=== PATIENT | female | born 1965 | race Caucasian/White ===

== ENCOUNTER 2021-01-24 08:06 | Outpatient (REF) | payer OTHER, SELFPAY ==
--- NOTE | ~2021-01-24 | MM_ITS ---
EXAMINATION: MM SCREENING DIGITAL BREAST TOMOSYNTHESIS, BILATERAL CLINICAL INFORMATION: Screening. Asymptomatic. The lifetime risk of breast cancer based on the Tyrer-Cuzick Model is 11.2%. COMPARISON: Mammography: November 26, 2019 and studies dating back to February 02, 2014 TECHNIQUE: Digital breast tomosynthesis is performed in both the craniocaudal and mediolateral oblique views along with computer-aided detection (CAD). Synthesized 2D images are generated from the tomosynthesis. FINDINGS: The breasts are heterogeneously dense, which may obscure small masses (ACR BI-RADS breast composition Category c). There are no significant masses, abnormal calcifications, or other abnormalities. MM/MM tomosynthesis screening BI IMPRESSION: There are no significant changes from prior study. ASSESSMENT: BI-RADS 1: Negative RECOMMENDATION: Routine annual mammography screening. This patient's information was entered into a reminder system with a target due date for their next mammogram.
== END 2021-01-24 08:07 | disposition home or self-care (01) ==
LOC: HO.MAMMO 08:06
PROVIDERS: Visit Provider Pediatrics
DX: Z12.31 Encounter for screening mammogram for malignant neoplasm of breast (principal)
CPT/HCPCS: 77063; 77067

== ENCOUNTER 2022-01-28 08:13 | Outpatient (REF) | payer OTHER, SELFPAY ==
--- NOTE | ~2022-01-28 | MM_ITS ---
EXAMINATION: MM SCREENING DIGITAL BREAST TOMOSYNTHESIS, BILATERAL CLINICAL INFORMATION: Screening. Asymptomatic. The lifetime risk of breast cancer based on the Tyrer-Cuzick Model is 12%. COMPARISON: Mammography: 01/24/2021, 11/26/2019, 10/05/2018 TECHNIQUE: Digital breast tomosynthesis is performed in both the craniocaudal and mediolateral oblique views along with computer-aided detection (CAD). Synthesized 2D images are generated from the tomosynthesis. FINDINGS: The breasts are heterogeneously dense, which may obscure small masses (ACR BI-RADS breast composition Category c). Breast tissue composition borders on average fibroglandular. There are no significant masses, abnormal calcifications, or other abnormalities. Parenchymal pattern is similar to prior studies. There is no developing density or architectural abnormality. The axilla and skin contours are unremarkable. No significant changes. MM/MM tomosynthesis screening BI IMPRESSION: No mammographic evidence of malignancy. ASSESSMENT: BI-RADS 1: Negative RECOMMENDATION: Routine annual mammography screening. This patient's information was entered into a reminder system with a target due date for their next mammogram.
== END 2022-01-28 08:14 | disposition home or self-care (01) ==
LOC: HO.MAMMO 08:13
PROVIDERS: Visit Provider Pediatrics
DX: Z12.31 Encounter for screening mammogram for malignant neoplasm of breast (principal)
CPT/HCPCS: 77063; 77067

== ENCOUNTER 2023-02-03 07:45 | Outpatient (REF) | payer OTHER, SELFPAY ==
--- NOTE | ~2023-02-03 | MM_ITS ---
EXAMINATION: MM SCREENING DIGITAL BREAST TOMOSYNTHESIS, BILATERAL CLINICAL INFORMATION: Screening. Asymptomatic. The lifetime risk of breast cancer based on the Tyrer-Cuzick Model is 12%. COMPARISON: Mammography: 01/28/2022, 01/24/2021, 11/26/2019 TECHNIQUE: Digital breast tomosynthesis is performed in both the craniocaudal and mediolateral oblique views along with computer-aided detection (CAD). Synthesized 2D images are generated from the tomosynthesis. FINDINGS: The breasts are heterogeneously dense, which may obscure small masses (ACR BI-RADS breast composition Category c). Breast tissue composition borders on average fibroglandular. Fine fibronodular parenchymal pattern is similar to prior studies and there is no developing density or architectural abnormality. There are no significant masses, abnormal calcifications, or other abnormalities. The axilla and skin contours are unremarkable. MM/MM tomosynthesis screening BI IMPRESSION: No mammographic evidence of malignancy. ASSESSMENT: BI-RADS 1: Negative RECOMMENDATION: Routine annual mammography screening. This patient's information was entered into a reminder system with a target due date for their next mammogram.
== END 2023-02-03 07:46 | disposition home or self-care (01) ==
LOC: HO.MAMMO 07:45
PROVIDERS: Visit Provider Obstetrics & Gynecology
DX: Z12.31 Encounter for screening mammogram for malignant neoplasm of breast (principal)
CPT/HCPCS: 77063; 77067

== ENCOUNTER 2024-01-30 09:58 | Outpatient (AMB) | payer OTHER, SELFPAY ==
--- NOTE | 2024-01-30 10:05 | A.OFFPC_ITS ---
Vital Signs 01/30/24 10:06 Height 5 ft 5 in Weight 181 lb 8 oz BMI 30.2 BP 131/73 Blood Pressure Location Rt brachial Position Sitting Pulse 70 Pulse Source Pulse Oximeter Pulse Oximetry (%) 97 Oxygen Delivery Method Room Air Intake Visit Reasons: Est care Intake Note: Pt presents to the office today for a new patient visit to establish care. Pt states she is feeling well and denies any concerns at this time. Allergies No Known Allergies [No Known Allergies*] Allergy (Unverified 01/30/24 10:08) Tobacco use date assessed: 01/30/24 Dental Screening Dental Screen Date: 01/30/24 Did you have a dental visit in the last 12 months?: Yes Did you have a dental problem in the last 6 months where you did not have access to dental care?: No Was dental information given to patient?: Patient has dentist HPI Est care HPI Details New patient Prior PCP:? Rianna Rico Last office visit/CPE: 1 yr ago Acute issue(s): Throat pain - improving PMHx: Rosacea, Psoriasis ([facility]). Cold sores. h/o anxiety. SurgHx: Tonsils/Adenoids. Bladder sling. . FHx: Dad: Melanoma, HTN, Prostate CA. Mom: HLD, Thyroid. daughter: ADHD. GF: Colon CA SocHx: Quit cigs 22 yrs ago. EtOH: 1-2 dr 1x a week. 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 1. Little interest or pleasure in doing things: not at all 2. Feeling down, depressed, or hopeless: not at all 3. Trouble falling or staying asleep, or sleeping too much: not at all 4. Feeling tired or having little energy: not at all 5. Poor appetite or overeating: not at all 6. Feeling bad about yourself - or that you are a failure or have let yourself or your family down: not at all 7. Trouble concentrating on things, such as reading the newspaper or watching television: not at all 8. Moving or speaking so slowly that other people could have noticed. Or the opposite - being so fidgety or restless that you have been moving around a lot more than usual: not at all 9. Thoughts that you would be better off or of hurting yourself in some way: not at all Total score: 0 Depression Screening Interpretation: Negative Depression Screening Done: Yes [id number] - PHQ-9 Billing: Yes Source: Developed by Drs. Zion Elizondo, Iqra Rene, Jason Nava and colleagues, with an educational zahraa from [employer]. Thrive Questionnaire Date Thrive assessed: 01/30/24 I am a: Patient What is your living situation today?: I have a steady place to live Within the past 12 months, did the food you bought not last and you didn't have the money to get more?: Never true Within the past 12 months, did you worry whether your food would run out before you got money to buy more?: Never true Do you have trouble paying for medicines?: No Do you have trouble getting transportation to medical appointments?: No Do you have trouble paying your heating and electricity bill?: No Do you have trouble taking care of your child, family member or friend?: No Do you have trouble with day-to-day activities such as bathing, preparing meals, shopping, managing finances, etc.?: No Are you currently unemployed and looking for a job?: No Are you interested in more education?: No THRIVE Score: 0 AUDIT C Alcohol Use Questionnaire (AUDIT-C) 1. How often do you have a drink containing alcohol?: 2-4 times a month 2. How many drinks containing alcohol do you have on a typical day when you are drinking?: 1 or 2 3. How often do you have six or more drinks on one occasion?: Never Total Score: 2 EDD-7 AMB Questionnaire EDD-7 Date EDD - 7 assessed: 01/30/24 Feeling nervous, anxious, or on edge: 0 = Not at all Not being able to stop or control worryin = Not at all Worrying too much about different things: 1 = Several days Trouble relaxin = Not at all Being so restless that it is hard to sit still: 0 = Not at all Becoming easily annoyed or irritable: 0 = Not at all Feeling afraid as if something awful might happen: 0 = Not at all Total EDD-7 score (0-4 normal; 5-9 mild; 10-14 moderate; 15-21 severe): 1 Source: Developed by Drs. Zion Elizondo, Iqra Rene, Jason Nava and colleagues, with an educational zahraa from [employer]. EDD-7 Assessment Billing EDD-7 Assessment Tool: EDD-7 Assessment 41156 Review of Systems Const Denies chills, Denies fatigue, Denies fever(s), Denies headache(s) and Denies weakness ENT Denies dizziness and Denies headache(s) Card Denies chest pain, Denies lightheadedness, Denies dyspnea and Denies other (Palpitations) Resp Denies cough, Denies dyspnea, Denies wheezing and Denies other ( shortness of breath) Musc Denies numbness and Denies tingling Neuro Denies dizziness, Denies headache(s), Denies numbness, Denies tingling, Denies paresthesias and Denies weakness Psych Denies anxiety and Denies depression Endo Denies fatigue Aller/Immun Denies wheezing Physical exam (Primary Care) Vital Signs: Last Vital Signs Pulse 70 01/30/24 10:06 BP 131/73 01/30/24 10:06 Pulse Ox 97 01/30/24 10:06 Oxygen Delivery Method Room Air 01/30/24 10:06 BMI result Body Mass Index 30.2 Tobacco/Smoking Status: Tobacco use Status Tobacco use date assessed 01/30/24 01/30/24 10:14 Patient Tobacco Use Status Never used Tobacco 01/30/24 10:35 PHQ-9: PHQ-9 Score PHQ-9: Total score 0 01/30/24 10:45 Depression Screening Interpretation: Negative Thrive Assessment: Date of Thrive Assessment Date Thrive assessed 01/30/24 01/30/24 10:14 Const General: no acute distress and well developed Nutritional Appearance: well nourished and obese Orientation/consciousness: patient oriented x3 HENMT Other: Mild throat erythema Head: Yes normocephalic and Yes atraumatic Eyes General: appearance normal, both eyes and all related structures Pupils: Equal, round and reactive pupils present EOM: EOMs intact bilaterally Resp Effort & Inspection: normal respiratory effort Auscultation: clear to auscultation bilaterally Cardio Rate: regular rate Rhythm: regular rhythm Heart sounds: S1 normal heart sound present, S2 normal heart sound present, no gallops, no murmurs and no rubs Neuro General: patient oriented x3 and gait normal Cranial nerves: Yes Equal, round and reactive pupils present Psych Affect: normal affect Assessment and Plan Assessment & Plan (1) Throat pain: Code(s): R07.0 - Pain in throat Plan: Mild?throat?erythema?without?patchy?exudates?or?vesicles.??No?lymphadenopathy. Appears?to?be?irritation.??Encouraged?good?hydration,?humidified?air?and?warm?sa ltwater?gargles. (2) Rosacea: Code(s): L71.9 - Rosacea, unspecified Plan: Continue?current?medications Follow-up?with?Dermatology?as?recommended (3) Psoriasis: Code(s): L40.9 - Psoriasis, unspecified Plan: Continue?medication Follow-up?with?dermatology?as?recommended (4) Anxiety: Code(s): F41.9 - Anxiety disorder, unspecified Plan: History?of?anxiety.??This?has?resolved (5) Obesity: Code(s): E66.9 - Obesity, unspecified Plan: Mild?obesity.??Patient?is?frustrated?with?dieting?and?exercise.??She?is?consider ing?trying?intermittent?fasting. Discussed?exercise?and?diet. Will?follow (6) Laboratory exam ordered as part of routine general medical examination: Code(s): Z00.00 - Encounter for general adult medical examination without abnormal findings Plan: Check?labs Orders: Orders Comprehensive [place]. Panel Fast Today Z00.00 - Encounter for general adult medical examination without abnormal findings Lipid Panel Today Z00.00 - Encounter for general adult medical examination without abnormal findings Microalbumin, Random (w Creat) Today I10 - Essential (primary) hypertension TSH reflex Free T4 Today Z00.00 - Encounter for general adult medical examination without abnormal findings UA and rflx microscopic Today Z00.00 - Encounter for general adult medical examination without abnormal findings Coding Level of Care Code New Pt Level 3 (83684) Diagnoses Throat pain R07.0 Rosacea L71.9 Psoriasis L40.9 Anxiety F41.9 Obesity E66.9 Laboratory exam ordered as part of routine general medical examination Z00.00 Additional Codes EDD-7 Assessment Billing - EDD-7 Assessment Tool: EDD-7 Assessment [id number] ([id number])
[2024-01-30 10:06] VITALS: BP 131/73; PULSE 70; O2SAT 97; BMI 30.2
== END 2024-01-30 10:53 | disposition home or self-care (01) ==
PROVIDERS: PCP Pediatrics; Visit Provider Family Medicine
DX: R07.0 Pain in throat (principal); L71.9 Rosacea, unspecified; E66.9 Obesity, unspecified; Z68.30 Body mass index [BMI] 30.0-30.9, adult; L40.9 Psoriasis, unspecified; F41.9 Anxiety disorder, unspecified
CPT/HCPCS: 99203

== ENCOUNTER 2024-02-04 07:09 | Outpatient (REF) | payer OTHER, SELFPAY ==
[2024-02-04 11:43] LABS: Appearance Urine Cloudy; Color Urine Yellow; Glucose Urine UA Negative (Negative); Leukocyte Esterase Urine Moderate (2+) (Negative); Nitrite Urine Negative (Negative); PH 5.5 (5.0-9.0); UMIC TRIGGER UA YES; Urine Blood Negative (Negative); Urine Ketones Negative (Negative); Urine Protein Negative (Neg-Trace)
[2024-02-04 11:46] LABS: Bacteria Urine 4+ (None Seen); Hyaline Casts Urine 0-2 /LPF (0-2); RBC Urine 0-2 /HPF (0-2); WBC Urine 21-50 /HPF (0-5)
[2024-02-04 12:35] LABS: Creatinine Urine 180.81 mg/dL; Microalbum/Creatinine Ratio Ur 4.9 ug/mg cr (<30)
[2024-02-04 12:54] LABS: Alanine Aminotransferase 22 U/L (0-31); Albumin Level 4.3 g/dL (3.5-5.0); Alkaline Phosphatase 96 U/L (39-117); Anion Gap 13 (12-20); Aspartate Amino Transferase 17 U/L (5-31); Bilirubin Total 0.4 mg/dL (0.0-1.0); Blood Urea Nitrogen 18 mg/dL (9-16); Calcium 9.4 mg/dL (8.4-10.2); Carbon Dioxide 23 mmol/L (22-29); Chloride 110 mmol/L (96-108); Cholesterol 183 mg/dL (<200); Estimated Glomerular Filt Rate > 60; Glucose Fasting 84 mg/dL (60-99); HDL Cholesterol 55 mg/dL (>40); LDL Cholesterol Calculated 101 mg/dL (<100); Sodium 142 mmol/L (135-145); Total Protein 7.3 g/dL (6.5-8.0); Triglycerides 138 mg/dL (<150)
[2024-02-04 12:57] LABS: TSH reflex Free T4 4.26 uIU/mL (0.32-4.0)
[2024-02-04 13:28] LABS: Free T4 (Free Thyroxine) 1.08 ng/dL (0.71-1.85)
== END 2024-02-04 07:10 | disposition home or self-care (01) ==
LOC: HO.WFDLDS 07:09
PROVIDERS: Visit Provider Family Medicine
DX: Z00.00 Encounter for general adult medical examination without abnormal findings (principal); I10 Essential (primary) hypertension
CPT/HCPCS: 36415; 80053; 80061; 81001; 82043; 82570; 84439; 84443

== ENCOUNTER 2024-02-12 08:24 | Outpatient (REF) | payer OTHER, SELFPAY | END 2024-02-12 08:25 | disposition home or self-care (01) | LOC: HO.MAMMO 08:24 | PROVIDERS: PCP Family Medicine; Visit Provider Obstetrics & Gynecology | DX: Z12.31 Encounter for screening mammogram for malignant neoplasm of breast (principal) | CPT/HCPCS: 77063; 77067 ==

== ENCOUNTER → 2024-02-12 08:30 | Outpatient (BNV) | payer OTHER, SELFPAY | PROVIDERS: PCP Family Medicine; Visit Provider Radiology Diagnostic Radiology | DX: Z12.31 Encounter for screening mammogram for malignant neoplasm of breast (principal) | CPT/HCPCS: 77063; 77067 ==

== ENCOUNTER 2024-06-07 09:15 | Outpatient (AMB) | payer OTHER, SELFPAY ==
--- NOTE | 2024-06-07 09:32 | A.OFFPC_ITS ---
Vital Signs 06/07/24 09:35 Height 5 ft 5 in Weight 179 lb 4 oz BMI 29.8 BP 112/58 L Blood Pressure Location Rt brachial Respiration 12 Pulse 63 Pulse Source Pulse Oximeter Pulse Oximetry (%) 97 Oxygen Delivery Method Room Air Intake Visit Reasons: CPE with f/u labs and health maintenance Intake Note: Physical and lab results Loss Prevention Consultant Required: No Allergies No Known Allergies [No Known Allergies*] Allergy (Verified 06/07/24 09:48) Medication List - Last Reconciled 06/07/24 by Elizabeth Ibarra [facility]- azelaic acid 15% (Finacea) 1 appl topical BID 30 days betamethasone dipropionate 0.05% appl topical valacyclovir 500 mg PO BID 14 days Tobacco use date assessed: 06/07/24 Dental Screening Dental Screen Date: 01/30/24 HPI HPI Comments History of Present Illness Details 58 y/o F with Rosacea, Psoriasis, Cold sores, anxiety, former smoke, obesity, menopause, varicose veins SurgHx: Tonsils/Adenoids, Bladder sling. FHx: Dad: Melanoma, HTN, Prostate CA. Mom: HLD, Thyroid. daughter: ADHD. GF: Colon CA SocHx: Quit cigs 22 yrs ago. EtOH: 1-2 dr 1x a week. No drugs Specialists: Derm - [facility] - wears glasses/contacts, UTD on eye exam Health Maintenance: Colon overdue, active w/ Dr Yi she will schedule Mammo 02/12/2024 Pap reports UTD on screening DEXA has never had one done, ordered today Here today for CPE Overmalissa feels well. Only complaint is that of inability to lose weight. Admits that she needs to become more active as she is quite sedentary. The following labs were reviewed with her today in detail. The mild elevation in her TSH is not clinically significant. She complains of some pain and swelling in her right posterior thigh where she has varicose veins. She reports that these were treated over 15 years ago. Would like these to be evaluated and treated. Her mood is good. Her sleep is fine. Labs from 02/04/2024 show normal electrolytes, normal renal function, normal LFTs, normal fasting glucose, total cholesterol 183, LDL 101, HDL 55, triglycerides 138, TSH 4.26, free T4 1.08, PLAN: Vascular referral and duplex US Right lower ext Discussed Wt watchers and physical activity Screening labs WNL RTO 1 year for CPE, sooner as needed. 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 1. Little interest or pleasure in doing things: not at all 2. Feeling down, depressed, or hopeless: not at all 3. Trouble falling or staying asleep, or sleeping too much: not at all 4. Feeling tired or having little energy: several days 5. Poor appetite or overeating: several days 6. Feeling bad about yourself - or that you are a failure or have let yourself or your family down: several days 7. Trouble concentrating on things, such as reading the newspaper or watching television: not at all 8. Moving or speaking so slowly that other people could have noticed. Or the opposite - being so fidgety or restless that you have been moving around a lot more than usual: not at all 9. Thoughts that you would be better off or of hurting yourself in some way: not at all Total score: 3 Depression Screening Interpretation: Negative Depression Screening Done: Yes 09732 - PHQ-9 Billing: Yes Source: Developed by Drs. Zion Elizondo, Iqra Rene, Jason Nava and colleagues, with an educational zahraa from [employer]. Thrive Questionnaire Date Thrive assessed: 01/30/24 AUDIT C Alcohol Use Questionnaire (AUDIT-C) 1. How often do you have a drink containing alcohol?: 2-3 times a week 2. How many drinks containing alcohol do you have on a typical day when you are drinking?: 3 or 4 3. How often do you have six or more drinks on one occasion?: Less than monthly Total Score: 5 Score Reviewed/Action Taken: Yes EDD-7 AMB Questionnaire EDD-7 Date EDD - 7 assessed: 06/07/24 Feeling nervous, anxious, or on edge: 0 = Not at all Not being able to stop or control worryin = Not at all Worrying too much about different things: 1 = Several days Trouble relaxin = Not at all Being so restless that it is hard to sit still: 0 = Not at all Becoming easily annoyed or irritable: 0 = Not at all Feeling afraid as if something awful might happen: 0 = Not at all Total EDD-7 score (0-4 normal; 5-9 mild; 10-14 moderate; 15-21 severe): 1 Source: Developed by Drs. Zion Elizondo, Iqra Rene, Jason Nava and colleagues, with an educational zahraa from [employer]. EDD-7 Assessment Billing EDD-7 Assessment Tool: EDD-7 Assessment 37963 Physical exam (Primary Care) Vital Signs: Last Vital Signs Pulse 63 06/07/24 09:35 Resp 12 06/07/24 09:35 BP 112/58 L 06/07/24 09:35 Pulse Ox 97 06/07/24 09:35 Oxygen Delivery Method Room Air 06/07/24 09:35 BMI result Body Mass Index 29.8 BMI Assessment/Plan discussion: High BMI High, discussed plan: lifestyle Tobacco/Smoking Status: Tobacco use Status Tobacco use date assessed 06/07/24 06/07/24 09:36 Patient Tobacco Use Status Never used Tobacco 06/07/24 09:36 PHQ-9: PHQ-9 Score PHQ-9: Total score 3 06/07/24 09:48 Depression Screening Interpretation: Negative Thrive Assessment: Date of Thrive Assessment Date Thrive assessed 01/30/24 06/07/24 09:36 Const Other: General: Well developed, well nourished, in no acute distress. Appears stated age. Head: Normocephalic, atraumatic. Eyes: Pupils are equal, round and reactive to light and accommodation. Conjunctivae are clear. Vision grossly normal. Ears: TMs clear AU, EACS WNL Nose: Patent, without discharge. Mouth: There are no ulcers or lesions noted. No inflammation, no post nasal drip, no plaques nor exudates. Neck: Supple, no adenopathy or thyromegaly. Lungs: Clear to auscultation bilaterally. No rales, rhonchi or wheeze noted. Good air flow in all rosas. Heart: Regular rate and rhythm. No murmurs, click, rubs or gallops are noted. Abdomen: Bowel sounds present in all quadrants. The abdomen is soft, nontender, with no masses or organomegaly noted. No hernias are noted. Musculoskeletal: Joints are nontender, without swelling, redness, or effusions. Range of motion is observed to be normal. Pulses: Peripheral pulses are equal and palpable bilaterally. Extremities: No clubbing, cyanosis nor edema is noted. + varicose veins ble, spider veins noted behind r knee Neurologic: Gait and station normal. Cranial Nerves 2-12 intact. Motor strength grossly symmetrical and intact. No sensory loss. Balance normal. Skin: No rashes, ulcers, or lesions noted. Turgor is good. Skin color is good. Hair and nails are without abnormalities. Psych: Normal eye contact, affect and mood appropriate, and normal interactions. Patient is alert and appropriate to context. Assessment and Plan Assessment & Plan (1) Encounter for general adult medical examination without abnormal findings: Code(s): Z00.00 - Encounter for general adult medical examination without abnormal findings (2) Menopause: Code(s): Z78.0 - Asymptomatic menopausal state (3) Varicose veins of legs: Code(s): I83.93 - Asymptomatic varicose veins of bilateral lower extremities Qualifiers: Varicose vein complication: pain Qualified Code(s): I83.813 - Varicose veins of bilateral lower extremities with pain Orders: Orders 2 US venous duplex LE RT Today I83.93 - Asymptomatic varicose veins of bilateral lower extremities XR DEXA axial skeleton Today Z78.0 - Asymptomatic menopausal state Referrals Vascular Surgery Referral I83.93 - Asymptomatic varicose veins of bilateral lower extremities Patient Instructions: Walk-In Care (Urgent Care): We Make it Easy Walk-in for urgent medical issues such as: ? Seasonal Allergies ? Insect Bites ? Cough ? Diarrhea ? Acute Asthma Attacks ? Back, Knee or Joint Pain ? Ear Infection ? Fever without a Rash ? Headaches ? Nausea ? [place] [facility], Rash or Skin Irritation ? Sore Throat ? Sports Physicals ? Vomiting Most insurances are accepted. Patients do not need to be part of the [facility] to seek care at the walk-in clinic. Locations [facility] [address], [place] [address] ? [phone] [facility] Walk-In Care in [place] provides services to ages 18 and over. Open Friday-Friday: 8 a.m. to 5 p.m. and Friday: 9 a.m. to 3 p.m.* *Hours may vary due to staffing availability. To confirm Walk-In Care hours in [place], please call [phone]. [address] [place] [address] ? [phone] [facility] Walk-In Care in [place] provides services to ages 12 and over. Open Friday-Friday: 8 a.m. to 5 p.m. Hours may vary due to staffing availability. To confirm Walk-In Care hours in [place], please call [phone]. LABORATORY SERVICES: [facility] Lab ? Primary Location [address] [place] [address] Friday through Friday 6:00 AM ? 5:00 PM Friday 7:00 AM ? 11:00 AM* [phone] The [facility] Lab is centrally located near the front entrance of the [facility] for easy outpatient access. Convenient parking is provided for outpatients. *Hours may vary due to staffing availability. To confirm Laboratory hours for any location, please call [phone]. Offsite Location For your convenience, we offer offsite laboratory draw stations at the following locations: [address] [place] [address] ? [address], [address] Friday through Friday 7:30 AM ? 1:00 PM* [phone] *Hours may vary due to staffing availability. To confirm Laboratory hours for any location, please call [phone]. [place] ? [address] Friday through Friday 6:00 AM ? 3:30 PM* Friday 6:30 AM ? 3 PM* [phone] *Hours may vary due to staffing availability. To confirm Laboratory hours for any location, please call [phone] [place] [address] Friday through Friday 7:30 AM ? 4:00 PM* [phone] *Hours may vary due to staffing availability. To confirm Laboratory hours for any location, please call [phone]. [facility] Friday through 9:00 AM ? 4:00 PM* *Hours may vary due to staffing availability. To confirm Laboratory hours for any location, please call [phone]. Appointments are not necessary. Walk-ins are welcome. Like all the departments throughout the [facility], our Lab undergoes frequent reviews to ensure the quality and accuracy of test results, and our staff takes special pride in its status as a nationally accredited facility. Patient Portal: ONE PATIENT. ONE RECORD. BETTER CARE. [facility] has a fully integrated, cutting- edge mobile electronic health information system that has revolutionized the way we care for our patients and manage our organization. This system improves communication and coordination enabling us to provide safe, higher-quality care, and an overall positive experience for staff and patients. Our first priority, as always, is to deliver the highest quality care possible. The system is running in the background supporting that priority. This portal is for all [facility] services and practices. If you are experiencing any technical difficulties with enrolling or logging into the Patient Portal please complete the [facility] Patient Portal Technical Support Form. [facility] now offers a new secure on-line interactive tool for patients to review their health information ? Patient Portal. This interactive web portal will enable patients and their families to take an active role in their care by providing easy, secure access to their health information via the internet. The Patient Portal provides patients with instant access to their health inf ormation, including laboratory results, medications, allergies, demographic information, visit history, and more. In addition to managing their own care, parents and health care proxies with authorized consent will appreciate the ability to access the records of those individuals for whom they provide care. Please note: if you wish to gain access (Proxy) to another patient?s portal, you will be required to come to the Medical Records Department in person at [facility]. Both the patient giving proxy access and the proxy will need to provide photo identification and complete the appropriate authorization. The Patient Portal also allows track their appointments online. The [facility] Patient Portal also saves patients time by allowing them to submit updates to their demographic and contact information prior to their visits. Portal email notifications will also alert patients to any new activity on their portal, such as test results and new appointments. In order to initially enroll in the [facility] Patient Portal, you will need to enter some required information including the following: ? your [facility] Medical Record number ? your personal home email address ? name ? date of Please note: In order to enroll in the [facility] Patient Portal, we need to have your email address on file in your electronic medical record. The email address needs to be specific for one person (yourself) in order for your Portal enrollment to be successful. You can update your email address in person with our Registration staff when you are registering for a hospital visit. Otherwise, you will need to come to the Health Information Management (Medical Records) Department at [facility]. We are open from Friday ? Friday from 7:30 a.m. ? 4:30 p.m. You will be required to present a photo id. Once you have successfully enrolled in the Patient Portal, you will receive a one-time user id and password for the Portal, sent to your email address. This will allow you to log into the Patient Portal within 99 hrs and reset your own logon id and password, and define personal security questions. Once your permanent login and password have been set, you can log into the [facility] Patient Portal at any time via the blue button above or from the Portal Logon button on any page of the [facility] website. [facility] encourage all of our patients to enroll in Patient Portal as it presents a valuable opportunity for patients and their families to actively participate in their care and stay healthy Welcome to [facility]. We look forward to working with you. Health screenings for women You should visit your health care provider from time to time, even if you are healthy. The purpose of these visits is to: Screen for medical issues Assess your risk for future medical problems Encourage a healthy lifestyle Update vaccinations and other preventive care services Help you get to know your provider in case of an illness Information Even if you feel fine, you should still see your provider for regular checkups. These visits can help you avoid problems in the future. For example, the only way to find out if you have high blood pressure is to have it checked regularly. High blood sugar and high cholesterol levels also may not have any symptoms in the early stages. A simple blood test can check for these conditions. There are specific times when you should see your provider or receive specific health screenings. The [place] Preventive Services Task Force publishes a list of recommended screenings. Below are screening guidelines for women ages 18 to 39. BLOOD PRESSURE SCREENING Your blood pressure should be checked at least once every 3 to 5 years if: Your blood pressure is in the normal range (top number less than 120 mm Hg and bottom number less than 80 mm Hg) You don't have risk factors for high blood pressure Ask your provider if you need your blood pressure checked more often if: The top number is 120 to 129 mm Hg or the bottom number is 70 to 79 mm Hg You have diabetes, heart disease, kidney problems, are overweight, or have certain other health conditions You have a first-degree relative with high blood pressure You are Black You had high blood pressure during a If the top number is 130 mm Hg or greater or the bottom number is 80 mm Hg or greater, this is considered stage 1 hypertension. Schedule an appointment with your provider to learn how you can reduce your blood pressure. Watch for blood pressure screenings in your area. Ask your provider if you can stop in to have your blood pressure checked. BREAST CANCER SCREENING Experts do not agree about the benefits of breast self-exams in finding breast cancer or saving lives. Talk to your provider about what is best for you. A screening mammogram is not recommended for most women under age 40. Your provider may discuss and recommend mammograms, MRI scans, or ultrasounds if you have an increased risk for breast cancer, such as: A mother or sister who had breast cancer at a young age (most often starting screening earlier than the age the close relative was diagnosed) You carry a high-risk genetic marker CERVICAL CANCER SCREENING Cervical cancer screening should start at age 21 years unless your provider advises otherwise. After the first test: Women ages 21 through 29 should have a Pap test every 3 years. Exoprts do not agree on whether HPV testing is recommended for this age group. Women ages 30 through 65 should be screened with either a Pap test every 3 years or the HPV test every 5 years or both tests every 5 years (called cotesting ). Women who have been treated for precancer (cervical dysplasia) should continue to have Pap tests for 20 years after treatment or until age 65, whichever is longer. If you have had your uterus and cervix removed (total hysterectomy), and you have not been diagnosed with cervical cancer or precancer (high grade cervical neoplasia), you do not need cervical cancer screening. CHOLESTEROL SCREENING Cholesterol screening should begin at: Age 45 for women with no known risk factors for coronary heart disease Age 20 for women with known risk factors for coronary heart disease Repeat cholesterol screening should take place: Every 5 years for women with normal cholesterol levels More often if changes occur in lifestyle (including weight gain and diet) More often if you have diabetes, heart disease, kidney problems, or certain other conditions DIABETES SCREENING You should be screened for diabetes starting at age 35 and then repeated every 3 years if you have no risk factors for diabetes. Screening may need to start earlier and be repeated more often if you have other risk factors for diabetes, such as: You have a first degree relative with diabetes. You are overweight or have obesity. You have high blood pressure, prediabetes, or a history of heart disease. Screening for diabetes should be done if you are planning to become and you are overweight and have other risk factors such as high blood pressure. DENTAL EXAM Go to the dentist once or twice every year for an exam and cleaning. Your dentist will evaluate if you need more frequent visits. EYE EXAM Have an eye exam every 5 to 10 years before age 40. If you have vision problems, have an eye exam every 2 years or more often if recommended by your provider. You should have an eye exam that includes an examination of your retina (back of your eye) at least every year if you have diabetes. IMMUNIZATIONS Commonly needed vaccines include: Flu shot: get one every year. COVID-19 vaccine: ask your provider what is best for you. Tetanus-diphtheria and acellular pertussis (Tdap) vaccine: have one at or after age 19 as one of your tetanus-diphtheria vaccines if you did not receive it as an adolescent. Tetanus-diphtheria: have a booster (or Tdap) every 10 years. Varicella vaccine: receive 2 doses if you never had chickenpox or the varicella vaccine. Hepatitis B vaccine: receive 2, 3, or 4 doses, depending on your exact circumstances. Measles, mumps, and rubella (MMR) vaccine: receive 1 to 2 doses if you are not already immune to MMR. Your provider can tell you if you are immune. Ask your provider about the human papillomavirus (HPV) vaccine if: You have not received the HPV vaccine in the past You have not completed the full vaccine series (you should catch up on this sh ot) Ask your provider if you should receive other immunizations if you have certain health problems that increase your risk for some diseases such as pneumonia. INFECTIOUS DISEASE SCREENING Women who are sexually active should be screened for chlamydia and gonorrhea up until age 25. Women 25 years and older should be screened for chlamydia and gonorrhea if at high risk. Screening for hepatitis C: All adults ages 18 to 79 should get a one-time test for hepatitis C. people should be screened at every . Screening for human immunodeficiency virus (HIV): All people ages 15 to 65 should get a one-time test for HIV. Depending on your lifestyle and medical history, you may also need to be screened for infections such as syphilis and HIV, as well as other infections. PHYSICAL EXAM All adults should visit their provider from time to time, even if they are healthy. The purpose of these visits is to: Screen for disease Assess your risk of future medical problems Encourage a healthy lifestyle Update your vaccinations and other preventive care services Maintain a relationship with a provider in case of an illness Your height, weight, and BMI should be checked at every exam. During your exam, your provider may ask you about: Depression and anxiety Diet and exercise Alcohol and tobacco use Safety issues, such as using seat belts, smoke detectors, and intimate partner violence Your medicines and risk for interactions SKIN SELF-EXAM Your provider may check your skin for signs of skin cancer, especially if you're at high risk, such as if you: Have had skin cancer before Have close relatives with skin cancer Have a weakened immune system OTHER SCREENING Talk with your provider about colon cancer screening if you have a strong family history of colon cancer or polyps, or if you have had inflammatory bowel disease or polyps yourself. Routine bone density screening of women under 40 is not recommended. Coding Level of Care Code Est Pt Prev Care 40-64y(82522) Diagnoses Encounter for general adult medical examination without abnormal findings Z00.00 Menopause Z78.0 Varicose veins of both lower extremities with pain I83.813 Varicose vein complication: pain Additional Codes EDD-7 Assessment Billing - EDD-7 Assessment Tool: EDD-7 Assessment 37465 ([id number])
[2024-06-07 09:35] VITALS: BP 112/58; PULSE 63; RESP 12; O2SAT 97; BMI 29.8
== END 2024-06-07 10:07 | disposition home or self-care (01) ==
PROVIDERS: PCP Nurse Practitioner Family; Visit Provider Nurse Practitioner Family
DX: Z00.00 Encounter for general adult medical examination without abnormal findings (principal); Z78.0 Asymptomatic menopausal state; I83.813 Varicose veins of bilateral lower extremities with pain
CPT/HCPCS: 99396

== ENCOUNTER 2024-11-22 06:31 | Day surgery (SDC) | payer OTHER, SELFPAY ==
--- NOTE | 2024-11-19 10:05 | HO.ANESPROP2 ---
Documented by User: Nikkie Ricci NP 11/19/24 10:06 HPI - Anesthesia Eval Consult details Narrative: 59yo F for Colonoscopy PMFSH Active Problems Active Problems: All Active Problems Encounter for general adult medical examination without abnormal findings (Acute) Varicose veins of legs (Acute) Menopause (Acute) Obesity (Acute) Anxiety (Acute) Psoriasis (Acute) Throat pain (Acute) Rosacea (Acute) Laboratory exam ordered as part of routine general medical examination (Acute) Past Medical History Medical History Rosacea Psoriasis Anxiety Varicose vein of leg Tubular adenoma of colon Surgical History Surgical History Hx of tonsillectomy History of bladder suspension procedure H/O colonoscopy Social History Social History Household Members: Spouse Housing: House Alcohol intake: current Alcohol intake frequency: a few times a week Alcohol type: wine and hard liquor Patient Tobacco Use Status: Former Tobacco user Tobacco use type: Cigarette Use of substances other than those prescribed or required for medical reasons: Yes Substance Use Type Other:: gummies Are you DNR?: No Advance Directives: No Advance Directives Information Provided: Yes Recently lost weight without trying: No Nutrition Risks: No Nutritional Risk Patient : No Current occupational status: employed 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 Cognitive needs: No Hearing needs: No Vision needs: Yes Meds Allergies Allergy/AdvReac Type Severity Reaction Status Date / Time No Known Allergies Allergy Verified 06/07/24 09:48 [No Known Allergies*] Home Medications ?Medication ?Instructions ?Recorded ?Confirmed ?Last Taken ?Type betamethasone dipropionate 0.05 % appl topical 01/30/24 06/07/24 Unknown History topical cream Exam Height,Weight and Vital Signs: Height 5 ft 5 in Weight 81.647 kg Assessment and Plan Assessment Anesthesia Assessment: Chart Reviewed Documented by User: Cynthia Olivares MD 11/22/24 08:16 [facility] Past Medical History Medical History Rosacea Psoriasis Anxiety Varicose vein of leg Tubular adenoma of colon Family History Family history of problems with anesthesia: No Surgical History Surgical History Hx of tonsillectomy History of bladder suspension procedure H/O colonoscopy History of Problems with Anesthesia: No Social History Social History Household Members: Spouse Housing: House Alcohol intake: current Alcohol intake frequency: a few times a week Alcohol type: wine and hard liquor Patient Tobacco Use Status: Former Tobacco user Tobacco use type: Cigarette Use of substances other than those prescribed or required for medical reasons: Yes Substance Use Type Other:: gummies Are you DNR?: No Advance Directives: No Advance Directives Information Provided: Yes Recently lost weight without trying: No Nutrition Risks: No Nutritional Risk Patient : No Current occupational status: employed 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 Cognitive needs: No Hearing needs: No Vision needs: Yes Meds Allergies Allergy/AdvReac Type Severity Reaction Status Date / Time No Known Allergies Allergy Verified 06/07/24 09:48 [No Known Allergies*] Home Medications ?Medication ?Instructions ?Recorded ?Confirmed ?Last Taken ?Type betamethasone dipropionate 0.05 % appl topical 01/30/24 06/07/24 Unknown History topical cream Exam Airway Mallampati Class: II TM Dist: >3cm Neck ROM: Full Heart: rrr Lungs: cta Assessment and Plan Assessment Anesthesia Assessment: Anesthesia Plan Discussed Final Anesthetic Review Family History of Problems with Anesthesia: No History of Problems with Anesthesia: No NPO: Yes ASA Class: II Final Preanesthetic Review: No Changes in Pt Med Stat, Meds/Allgs Chart Reviewed, Consent Obtained/Reviewed and Anes Risks/Benef Reviewed Patient Risk: Intermediate Procedure Risk: Low Anesthetic Plan Anesthetic Plan: MAC: Disposition: Standard PACU
--- OUTSIDE RECORDS SUMMARY | 2024-11-22 06:34 | XMS_ITS ---
Author Organization [facility] Address [address] [place] [address] Care Team Providers Care Flash Welder Name Role Phone Jose Velasco Primary Care Provider Unavailab Zion Calloway Unavailable [phone] REASON FOR VISIT Patient presents today for a SCREENING COLON Encounters Encounter Location Date Provider Diagnosis [facility] [address] [place] [address] 03/17/2024 Zion Yi PLAN OF TREATMENT Next Appt Details Provider Name:Zion Yi , 11/22/2024 07:30:00 AM, [address] [facility] , [place], [place], [phone],
--- OUTSIDE RECORDS SUMMARY | 2024-11-22 06:34 | XMS_ITS | Patient Health Record ---
Author Organization [facility] Address [address] [place] [address] Care Team Providers Care Section Plotter Operator Name Role Phone Jose Velasco Primary Care Provider UnavailZion Crooks Unavailable [phone] ALLERGIES No Known Allergies REASON FOR REFERRAL No Information MEDICATIONS Medication SIG (Take, Route, Frequency, Duration) Notes Start Date End Date Status valACYclovir HCl 500 MG Oral for 14 as needed Active IMMUNIZATIONS Vaccine Route Administration Date Status Comme nts Influenza Unknown 10/20/2018 Administered Influenza Unknown 07/14/2024 Refused SOCIAL HISTORY Tobacco Use: Social History Observation Description Date Details (start date - stop date) Former Smoker NA - NA Sex Assigned At : Social History Observation Description Sex Assigned At Unknown Tobacco Use/Smoking Question Answer Notes Patient is a former smoker When did you stop smoking? over 20 years ago How long has it been since you last smoked? > 10 years Alcohol Screen Question Answer Notes Did you have a drink contain ing alcohol in the past year? Yes How often did you have a dri nk containing alcohol in the past year? 2 to 3 times a week (3 points) How many drinks did you have on a typical day when you were drinking in the past year? 1 or 2 drinks (0 point) Points 3 Interpretation Positive PROBLEMS Problem Type ICD Code Onset Dates Problem Status W/U Status Risk SNOMED Code Notes Problem Pre-procedural examination (Z01.818) Active confirmed 012297501332966 Problem Encounter for screening for malignant neoplasm of colon (Z12.11) Active confirmed 818890617 Problem History of adenomatous polyp of colon (Z86.010) Active confirmed History of adenomatous polyp of colon (506321066) Problem Colon cancer screening (Z12.11) Active confirmed Colon cancer screening (470832061) Problem Preprocedural examination (Z01.818) Active confirmed Preprocedural examination (714046218357687) VITAL SIGNS Temperature 97.5 degrees Fahrenheit 07/14/2024 Blood pressure diastolic 00 mm Hg 07/14/2024 Height 65 in 07/14/2024 Blood pressure systolic 000 mm Hg 07/14/2024 Weight 179 lb 8 oz lbs 07/14/2024 BMI 29.87 kg/m2 07/14/2024 Encounters Encounter Location Date Provider Diagnosis [facility] [place] [address] [place] [phone] 11/22/2024 Zion Yi [facility] [address] [place] [phone] 03/17/2024 Zion Yi [facility] [address] [place] [address] 07/14/2024 Zion Yi History of adenomato us polyp of colon Z86.010 ; Preprocedural examination Z01.818 and Colon cancer screening Z12.11 [facility] [address] [place] [address] 03/15/2024 Zion Kassidy ASSESSMENTS Encounter Date Diagnosis Assessment Notes Treatment Notes Treatment Clinical Notes 07/14/2024 History of adenomatous polyp of colon (ICD-10 - Z86.010) 07/14/2024 Preprocedural examination (ICD-10 - Z01.818) 07/14/2024 Colon cancer screening (ICD-10 - Z12.11) PLAN OF TREATMENT Future Test Test Name Order Date COLONOSCOPY 10/20/2018 COLONOSCOPY 07/14/2024 Next Appt Details Provider Name:Zion Yi , 11/22/2024 07:30:00 AM, [address] [place] [address] , [place], [place], [phone], Insurance Providers Payer Name Payer Address Payer Phone Subscriber Number Group Number Insured Name Patient Relationship to Insured Coverage Start Date Coverage End Date [facility] Insurance ([employer]) [id number] [place] [id number] JIM CORTEZ Self - patient is the insured MEDICAL (GENERAL) HISTORY Medical History History ICD Code Denies [place],DM,CVA,Lung disease,renal dise ase Colonoscopy in 12/2018 with a small tubul ar adenoma removed Surgical History Surgery Date(Month/Year) Bladder suspension 05/2016 Tonsillectomy
--- OUTSIDE RECORDS SUMMARY | 2024-11-22 06:34 | XMS_ITS ---
Author Organization [facility] Address [address] [place] [address] Care Team Providers Care Feed Grinder Name Role Phone Jose Velasco Primary Care Provider UnavailZion Crooks Unavailable [phone] ALLERGIES No Known Allergies REASON FOR VISIT Patient presents today for a SCREENING COLON MEDICATIONS Medication SIG (Take, Route, Frequency, Duration) Notes Start Date End Date Status valACYclovir HCl 500 MG Oral for 14 as needed Active IMMUNIZATIONS Vaccine Route Administration Date Status Comme nts Influenza Unknown 07/14/2024 Refused SOCIAL HISTORY Tobacco [...] W/U Status Risk SNOMED Code Notes Problem History of adenomatous polyp of colon (Z86.010) Active confirmed History of adenomatous polyp of colon (459342161) Problem Colon cancer screening (Z12.11) Active confirmed Colon cancer screening (118151139) Problem Preprocedural examination (Z01.818) Active confirmed Preprocedural examination (135966028103333 ) VITAL SIGNS BMI 29.87 kg/m2 07/14/2024 Blood pressure systolic 000 mm Hg 07/14/20 24 Blood pressure diastolic 00 mm Hg 024 Height 65 in 07/14/2024 Temperature 97.5 degrees Fahrenheit 07/14/20 24 Weight 179 lb 8 oz lbs 07/14/2024 Encounters Encounter Location Date Provider Diagnosis [facility] [address] [place] [address] 07/14/2024 Zion Yi History of adenomato us polyp of colon Z86.010 ; Preprocedural examination Z01.818 and Colon cancer screening Z12.11 ASSESSMENTS Encounter Date Diagnosis Assessment Notes Treatment Notes Treatment Clinical Notes 07/14/2024 History of adenomatous polyp of colon (ICD-10 - Z86.010) 07/14/2024 Preprocedural examination (ICD-10 - Z01.818) 07/14/2024 Colon cancer screening (ICD-10 - Z12.11) PLAN OF TREATMENT Future Test Test Name Order Date COLONOSCOPY 07/14/2024 Next Appt Details Follow Up: prn, Reason: Provider Name:Zion Yi , 11/22/2024 07:30:00 AM, [address] [place] [address] , [place], [place], [phone], Progress Notes * Examination Category Sub-Category Detail Notes General Examination GENERAL APPEARANCE: pleasant , well nourished, well developed, in no acute distress HEAD: EYES: sclera non-icteric EARS: NOSE: THROAT: NECK/THYROID: no cervical lymphade nopathy, neck supple HEART: S1, S2 normal CHEST: LUNGS: clear to auscultatio n bilaterally ABDOMEN: normal bowel sounds, no guarding or rigidity, no guarding or rigidity, no masses palpable, soft, nontender, nondistended NEUROLOGIC: alert and oriented SKIN: nonjaundiced, no spi romero angiomata EXTREMITIES: no edema PERIPHERAL PULSES: BACK: BREASTS: MUSCULOSKELETAL: MALE GENITOURINARY: LYMPH NODES: RECTAL EXAM: FEMALE GENITOURINARY: ORAL CAVITY: mucosa moist
[2024-11-22 06:39] VITALS: BMI 30.2
[2024-11-22 07:01] VITALS: BP 121/78; PULSE 67; RESP 16; TEMP 35.8; O2SAT 97
[2024-11-22] MEDS: Lactated Ringers 1,000 ML 100 ML IVCONT (07:02)
[2024-11-22 08:32] VITALS: BP 110/67; PULSE 69; RESP 16; TEMP 36.4; O2SAT 98
--- NOTE | 2024-11-22 08:35 | P.BOP_ITS ---
Brief Operative Note Date of Service: 11/22/24 Pre-op diagnosis: Screening Post-op diagnosis: other (Diverticulosis) Procedure: Colonoscopy to the cecum and TI Surgeon: Zion Yi MD Anesthesia: MAC Was an Container Washer Machine used for this Procedure?: No Estimated blood loss (mL): 0 Pathology: none sent Condition: stable Disposition: PACU
[2024-11-22 08:43] VITALS: BP 116/71; PULSE 69; RESP 16; TEMP 36.4; O2SAT 98
--- NOTE | 2024-11-22 08:44 | OP_ITS ---
DATE OF SERVICE: 11/22/2024 SURGEON: Zion Yi MD INDICATIONS: The patient presents for followup of personal history of a tubular adenoma of the colon and need for colorectal cancer screening. Full consent obtained from her for this, including risks of bleeding and perforation. PREOPERATIVE DIAGNOSIS: Colorectal cancer screening and personal history of tubular adenoma of the colon. POSTOPERATIVE DIAGNOSIS: Colorectal cancer screening and personal history of tubular adenoma of the colon, diverticulosis and internal hemorrhoids. PROCEDURE PERFORMED: Colonoscopy to cecum and terminal ileum. ESTIMATED BLOOD LOSS: COMPLICATIONS: ANESTHESIA: Monitored anesthesia care. ASSISTANTS: SPECIMENS: DESCRIPTION OF PROCEDURE: The patient was placed in the left lateral decubitus position. The digital rectal exam revealed no abnormalities. The Olympus video pediatric colonoscope was entered into the rectum and advanced easily to the cecum. Once in the cecum, I did identify normal-appearing cecal pouch with appendiceal orifice and a normal-appearing ileocecal valve. The terminal ileum was cannulated and appeared normal. Scope withdrawn back in the colon. The entire cecum and ileocecal valve appeared normal. The scope was then slowly withdrawn assessing all mucosal surfaces carefully. Preparation was excellent. I did not visualize any sign of polyps, colitis, nor angiodysplasia. There was a mild amount of sigmoid diverticulosis. In the rectum, scope was retroflexed visualizing internal hemorrhoids, but no other pathology. The rectal mucosa appeared normal. The scope was straightened and withdrawn from the patient. She tolerated the procedure well and was returned to the recovery area in stable condition. IMPRESSION: 1. Diverticulosis. 2. Internal hemorrhoids. PLAN: Given her previous history I would recommend a followup colonoscopy in 5 years for further screening. She will otherwise see me on a p.r.n. basis. MD QUINTEN Llamas/KINGS / [id number]
== END 2024-11-22 09:26 | disposition home or self-care (01) ==
PROVIDERS: PCP Nurse Practitioner Family; Visit Provider Internal Medicine
PROC: 0DJD8ZZ Inspection of Lower Intestinal Tract, Via Natural or Artificial Opening Endoscopic (ICD-10-PCS; CPT 45378; principal; 2024-11-22 07:30)
DX: Z12.11 Encounter for screening for malignant neoplasm of colon (principal); K57.30 Diverticulosis of large intestine without perforation or abscess without bleeding; K64.8 Other hemorrhoids; Z86.0101 Personal history of adenomatous and serrated colon polyps; Z87.891 Personal history of nicotine dependence
CPT/HCPCS: 45378; J2003; J2704

== ENCOUNTER 2024-11-24 08:00 | Outpatient (REF) | payer OTHER, SELFPAY ==
--- NOTE | ~2024-11-24 | MM_ITS ---
EXAMINATION: Dual-Energy X-ray Absorptiometry - Bone Density Study HISTORY: Estrogen deficiency TECHNIQUE: [employer] Dual energy absorptiometry (DEXA) of the lumbar spine, total left hip, and femoral neck was performed. COMPARISON: There are no prior studies for comparison. FINDINGS: The bone mineral density of the lumbar spine is 0.898 with a T-score of -2.3, and a Z-score of 1.9. The bone mineral density of the left total hip is 0.822 with a T-score of -1.5, and a Z-score of 1.1. The bone mineral density of the left femoral neck is 0.753 with a T-score of -2.1, and a Z-score of 1.3. FRACTURE RISK: The FRAX index suggests a risk of major osteoporotic fracture of 8.5%, and of hip fracture 1.1%. MM/XR DEXA axial skeleton IMPRESSION: Based on bone mineral density, and according to World Health Organization (WHO) criteria, the diagnosis is consistent with osteopenia. All bone density values are in grams per centimeter squared. At this facility, the least significant change in BMD with 95% confidence is 0.022 at the lumbar spine, 0.027 at the hip, and 0.023 at the distal 1/3 radius. Electronically signed by: Zion Barry MD 11/25/2024 02:11 PM [facility]ERT
--- OUTSIDE RECORDS SUMMARY | 2024-11-24 08:04 | XMS_ITS ---
Author Organization [facility] Address [address] [place] [address] Care Team Providers Care Transport Aide Name Role Phone Jose Velasco Primary Care Provider Unavailab Zion Calloway Unavailable [phone] REASON FOR VISIT colon screening Encounters Encounter Location Date Provider Diagnosis [facility] [place] [address] [place], [place] [phone] 11/22/2024 Zion Yi PLAN OF TREATMENT No Information
--- OUTSIDE RECORDS SUMMARY | 2024-11-24 08:04 | XMS_ITS ---
Author Organization [facility] Address [address] [place] [address] Care Team Providers Care Ssis Developer Name Role Phone Jose Velasco Primary Care Provider UnavailZion Crooks Unavailable [phone] ALLERGIES No Known Allergies REASON FOR VISIT [...] confirmed History of adenomatous polyp of colon (257566433) Problem Colon cancer screening (Z12.11) Active confirmed Colon cancer screening (673471558) Problem Preprocedural examination (Z01.818) Active confirmed Preprocedural examination (236050146251676 ) VITAL SIGNS BMI 29.87 kg/m2 07/14/2024 Blood pressure systolic 000 mm Hg 07/14/20 24 Blood pressure diastolic 00 mm Hg 024 Height 65 in 07/14/2024 Temperature 97.5 degrees Fahrenheit 07/14/20 24 Weight 179 lb 8 oz lbs 07/14/2024 Encounters Encounter Location Date Provider Diagnosis [facility] [address] [place] [address] 07/14/2024 Zion Yi History of adenomato us [...] Next Appt Details Follow Up: prn, Reason: Progress Notes * Examination Category Sub-Category Detail [...]
--- OUTSIDE RECORDS SUMMARY | 2024-11-24 08:04 | XMS_ITS | Patient Health Record ---
Author Organization [facility] Address [address] [place] [address] Care Team Providers Care Leather Flesher Name Role Phone Jose Velasco Primary Care Provider UnavailZion Crooks Unavailable [phone] ALLERGIES No Known Allergies REASON FOR REFERRAL [...] Notes Problem Pre-procedural examination (Z01.818) Active confirmed [id number] Problem Encounter for screening for malignant neoplasm of colon (Z12.11) Active confirmed 238536863 Problem History of adenomatous polyp of colon (Z86.010) Active confirmed History of adenomatous polyp of colon (494163652) Problem Colon cancer screening (Z12.11) Active confirmed Colon cancer screening (415173060) Problem Preprocedural examination (Z01.818) Active confirmed Preprocedural examination (962458072746765) VITAL SIGNS Temperature 97.5 degrees Fahrenheit 07/14/2024 Blood pressure diastolic 00 mm Hg 07/14/2024 Height 65 in 07/14/2024 Blood pressure systolic 000 mm Hg 07/14/2024 Weight 179 lb 8 oz lbs 07/14/2024 BMI 29.87 kg/m2 07/14/2024 Encounters Encounter Location Date Provider Diagnosis [facility] [place] [address] [place] [phone] 11/22/2024 Zion Yi [facility] [address] [place] [phone] 03/17/2024 Zion Yi [facility] [address] [place] [address] 07/14/2024 Zion Yi History of adenomato us polyp of colon Z86.010 ; Preprocedural examination Z01.818 and Colon cancer screening Z12.11 [facility] [address] [place] [address] 03/15/2024 Zion Yi ASSESSMENTS Encounter Date Diagnosis Assessment Notes Treatment Notes Treatment Clinical Notes 07/14/2024 History of adenomatous polyp of colon (ICD-10 - Z86.010) 07/14/2024 Preprocedural examination (ICD-10 - Z01.818) 07/14/2024 Colon cancer screening (ICD-10 - Z12.11) PLAN OF TREATMENT Future Test Test Name Order Date COLONOSCOPY 10/20/2018 COLONOSCOPY 07/14/2024 Insurance Providers Payer Name Payer Address Payer Phone Subscriber Number Group Number Insured Name Patient Relationship to Insured Coverage Start Date Coverage End Date [facility] Insurance ([employer]) [address] [place] [id number] [phone] [id number] JIM CORTEZ Self - patient is the insured MEDICAL (GENERAL) HISTORY Medical History History ICD Code Denies [place],DM,CVA,Lung disease,renal dise ase Colonoscopy in 12/2018 with a small tubul ar adenoma removed Surgical History Surgery Date(Month/Year) Bladder suspension 05/2016 Tonsillectomy
--- OUTSIDE RECORDS SUMMARY | 2024-11-24 08:04 | XMS_ITS ---
Author Organization [facility] Address [address] [place] [address] Care Team Providers Care Ceramic Plater Name Role Phone Jose Velasco Primary Care Provider Unavailab Zion Calloway [phone] REASON FOR VISIT Patient presents today for a SCREENING COLON Encounters Encounter Location Date Provider Diagnosis [facility] [address] [place] [address] 03/17/2024 Zion Yi PLAN OF TREATMENT No Information
== END 2024-11-24 08:01 | disposition home or self-care (01) ==
LOC: HO.MAMMO 08:00
PROVIDERS: PCP Family Medicine; Visit Provider Nurse Practitioner Family
DX: Z13.820 Encounter for screening for osteoporosis (principal); E28.39 Other primary ovarian failure; Z78.0 Asymptomatic menopausal state
CPT/HCPCS: 77080

== ENCOUNTER → 2024-11-24 08:15 | Outpatient (BNV) | payer OTHER, SELFPAY | PROVIDERS: PCP Family Medicine; Visit Provider Radiology Diagnostic Radiology | DX: Z78.0 Asymptomatic menopausal state (principal) | CPT/HCPCS: 77086 ==

== ENCOUNTER 2024-11-25 09:18 | Outpatient (AMB) | payer OTHER, SELFPAY ==
--- NOTE | 2024-11-25 09:30 | A.OFFVIS_ITS ---
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 States she had something done in [place] 15 years ago States it is behind her right knee. 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 Complaints include pain over varicosities, swelling of lower extremities, cramping, fatigue, and heaviness of the lower extremities. It has been affecting there daily activities including walking and exercise. It is noted more so in right leg. Patient reports prior venous procedure by Dr. Kiran nearly 78 years ago unclear what was done but sounds to be more of a great saphenous vein ablation. Patient denies any history of DVT/ PE. Patient denies any history of phlebitis. Trial of compression includes - prescription compression for many years They now present for vascular evaluation regarding their varicose veins. 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 Cognitive needs: No Hearing needs: No Vision needs: Yes Review of Systems Const Reports as per HPI ENT Reports no additional complaints Card Denies chest pain, Denies chest pain at rest and Denies chest pain with activity Resp Denies chest congestion and Denies cough GI Reports no additional complaints Musc Details: pain over varicosities, aching of lower extremities, swelling, cramping, heaviness and tiredness, itching Denies abnormal gait Skin/Breast Reports pruritus and Denies wounds Neuro Reports no additional complaints and Denies abnormal gait Psych Denies no additional complaints Physical Exam Const General: cooperative, healthy appearing and comfortable Orientation/consciousness: oriented to person, oriented to place and oriented to time Neck Carotids: no bruits Chest Chest palpation & inspection: normal inspection of the chest and normal palpation of entire chest wall Resp Effort & Inspection: normal respiratory effort and able to speak in complete sentences Cardio Rate: regular rate Heart sounds: S1 normal heart sound present and S2 normal heart sound present Peripheral pulses: Peripheral pulses 2+ throughout GI Inspection: Yes normal to inspection Skin Other: +2 edema, large rope-like varicosities greater than 4 mm right posterior thigh CEAP Classification C4 - skin color changes Ep - Etiology Primary As - superficial veins P - reflux General skin exam: dry skin Neuro General: oriented to person, oriented to place and oriented to time Extrem Right lower extremity: full ROM, normal capillary refill and edema Left lower extremity: full ROM, normal capillary refill and edema Psych Mental Status: mental status grossly normal Assessment & Plan Assessment & Plan (1) Varicose veins of right lower extremity with inflammation: Code(s): I83.11 - Varicose veins of right lower extremity with inflammation Category: Medical Plan: In short, the patient has evidence of venous insufficiency. I have discussed the pathophysiology with the patient. In addition I have provided informational material regarding venous disease to the patient. We have discussed conservative measures including compression, elevation, and exercise. I have also provided a handout regarding appropriate use of compression stockings and where to purchase good compression stockings as well. I have taken the liberty of ordering venous insufficiency testing with the patient. They will follow up with me after testing. The patient had an opportunity to ask questions regarding the treatment plan. All questions were answered. Imaging studies, laboratory studies and physical exam results were discussed and reviewed in detail. No major barriers to understanding were identified. The patient expressed understanding and agreement with the above treatment plan. The patient is aware they should contact our office by phone for worsening of the current condition or the appearance of new symptoms. Thank you for allowing me to participate in the vascular care of this patient. If you have any questions or concerns regarding the treatment for the above condition please do not hesitate to contact me. The office telephone contact is [phone]. This note is constructed using voice recognition software. While every effort has been made to ensure accuracy, paragliding instructor errors may have been included. Thank you for allowing me to participate in the care of your patient. Yours sincerely, Antonio Wagner MD, FACS, R.P.V.I. Orders: Orders US venous duplex LE BI 1 Week I83.11 - Varicose veins of right lower extremity with inflammation Coding Level of Care Code New Pt Level 4 (60251) Diagnoses Varicose veins of right lower extremity with inflammation I83.11
--- OUTSIDE RECORDS SUMMARY | 2024-11-25 09:34 | XMS_ITS | Patient Health Record ---
Author Organization [facility] Address [address] [place] [address] Care Team Providers Care Cream Maker Name Role Phone Jose Velasco Primary Care Provider UnavailZion Crooks Unavailable [phone] ALLERGIES No Known Allergies REASON FOR REFERRAL [...] Notes Problem Pre-procedural examination (Z01.818) Active confirmed 497503719017063 Problem Encounter for screening for malignant neoplasm of colon (Z12.11) Active confirmed 877464967 Problem History of adenomatous polyp of colon (Z86.010) Active confirmed History of adenomatous polyp of colon (013537218) Problem Colon cancer screening (Z12.11) Active confirmed Colon cancer screening (668662839) Problem Preprocedural examination (Z01.818) Active confirmed Preprocedural examination (626232562964787) VITAL SIGNS Temperature 97.5 degrees Fahrenheit 07/14/2024 Blood pressure diastolic 00 mm Hg 07/14/2024 Height 65 in 07/14/2024 Blood pressure systolic 000 mm Hg 07/14/2024 Weight 179 lb 8 oz lbs 07/14/2024 BMI 29.87 kg/m2 07/14/2024 Encounters Encounter Location Date Provider [place] [facility] [place] [address] [place] [phone] 11/22/2024 Zion Yi [facility] [address] [place] [phone] 03/17/2024 Zion Yi [facility] [address] [place] [phone] 07/14/2024 Zion Yi History of adenomato us polyp of colon Z86.010 ; Preprocedural examination Z01.818 and Colon cancer screening Z12.11 [facility] [address] [place] [phone] 03/15/2024 Zion Yi ASSESSMENTS Encounter Date Diagnosis [...] Insured Coverage Start Date Coverage End Date [facility] Insurance ([employer]) [address] [place] [id number] [phone] [id number] JIM CORTEZ Self - patient is the insured MEDICAL (GENERAL) HISTORY Medical History History ICD Code Denies MT,DM,CVA,Lung disease,renal dise ase Colonoscopy in 12/2018 with a small tubul ar adenoma removed Surgical History Surgery Date(Month/Year) Bladder suspension 05/2016 Tonsillectomy
--- OUTSIDE RECORDS SUMMARY | 2024-11-25 09:34 | XMS_ITS ---
Author Organization [facility] Address [address] [place] [address] Care Team Providers Care Admin Prog Coord Name Role Phone Jose Velasco Primary Care Provider Unavailab Zion Calloway Unavailable [phone] REASON FOR VISIT colon screening Encounters Encounter Location Date Provider Diagnosis [facility] [place] [address] [place], [place] [id number] 11/22/2024 Zion Yi PLAN OF TREATMENT No Information
--- OUTSIDE RECORDS SUMMARY | 2024-11-25 09:34 | XMS_ITS ---
Author Organization [facility] Address [address] [place] [address] Care Team Providers Care Risk Assessor Name Role Phone Jose Velasco Primary Care Provider Unavailab Zion Calloway [phone] REASON FOR VISIT Patient presents today for a SCREENING COLON Encounters Encounter Location Date Provider Diagnosis [facility] [address] [place] [address] 03/17/2024 Zion Yi PLAN OF TREATMENT No Information
--- OUTSIDE RECORDS SUMMARY | 2024-11-25 09:34 | XMS_ITS ---
Author Organization [facility] Address [address] [place] [address] Care Team Providers Care Design Printing Machine Set Up Operator Name Role Phone Jose Velasco Primary Care Provider UnavailZion Crooks Unavailable [phone] ALLERGIES No Known Allergies REASON FOR VISIT [...] confirmed History of adenomatous polyp of colon (306452436) Problem Colon cancer screening (Z12.11) Active confirmed Colon cancer screening (552285393) Problem Preprocedural examination (Z01.818) Active confirmed Preprocedural examination (706401909520283 ) VITAL SIGNS BMI 29.87 kg/m2 07/14/2024 Blood pressure systolic 000 mm Hg 07/14/20 24 Blood pressure diastolic 00 mm Hg 024 Height 65 in 07/14/2024 Temperature 97.5 degrees Fahrenheit 07/14/20 24 Weight 179 lb 8 oz lbs 07/14/2024 Encounters Encounter Location Date Provider Diagnosis [facility] [address] [place] [address] 07/14/2024 Zion Yi History of adenomato us [...]
== END 2024-11-25 09:55 | disposition home or self-care (01) ==
PROVIDERS: PCP Nurse Practitioner Family; Visit Provider Surgery Vascular Surgery
DX: I83.11 Varicose veins of right lower extremity with inflammation (principal)
CPT/HCPCS: 99204

== ENCOUNTER → 2024-11-25 09:18 | Outpatient (BNVA) | payer OTHER, SELFPAY | PROVIDERS: PCP Nurse Practitioner Family; Visit Provider Surgery Vascular Surgery ==

== ENCOUNTER 2025-01-21 08:01 | Outpatient (REF) | payer OTHER, SELFPAY ==
--- NOTE | ~2025-01-21 | US_ITS ---
EXAMINATION: US LOWER EXTREMITY VENOUS (REFLUX EXAM), BILATERAL CLINICAL INFORMATION: Varices. Question ablation 7-8 years ago in the right lower extremity. COMPARISON: None. TECHNIQUE: Color flow triplex imaging and compression Doppler was performed to evaluate both the deep and the superficial systems bilaterally. To evaluate the superficial system, the examination was performed in the upright position. Color-flow Doppler ultrasound and compression ultrasound were utilized. In addition, maneuvers were utilized to demonstrate reflux. FINDINGS: 1. DEEP VENOUS ULTRASOUND OF THE RIGHT LOWER EXTREMITY: Common Femoral Vein: Compressible, normal respiratory variation and augmented flow. Femoral Vein: Compressible, normal color flow and augmentation. Popliteal Vein: Compressible, normal augmentation. Deep Reflux: There is no evidence of reflux in the deep system in either the common femoral vein, superficial femoral or the popliteal vein. There is no evidence of a Brunner's cyst. 2. SUPERFICIAL ULTRASOUND WITH DOPPLER OF RIGHT LOWER EXTREMITY: GREAT SAPHENOUS VEIN: Saphenofemoral Junction: 0.5 cm; Reflux: 0 ms Proximal Thigh: 0.6 cm; Reflux: 0 ms Mid Thigh: 0.1 cm; Reflux: 0 ms Distal Thigh: 0.2 cm; Reflux: 0 ms At Knee: 0.2 cm; Reflux: 0 ms Proximal Calf: 0.2 cm; Reflux: More than 2332 ms Mid Calf: 0.2 cm; Reflux: No more than 2048 ms Distal Calf: 0.2 cm; Reflux: No more than 2120 ms DUPLICATED MEDIAL GREAT SAPHENOUS VEIN: Diameter: None imaged Reflux: NA DUPLICATED LATERAL GREAT SAPHENOUS VEIN: Diameter: 0.2 cm Reflux: NA SMALL SAPHENOUS VEIN: Saphenopopliteal Junction: 0.2 cm; Reflux: 0 ms Proximal: 0.2 cm; Reflux: 0 ms Distal: 0.2 cm; Reflux: 0 ms VEIN OF GIACOMINI: Size: NA Reflux: NA PERFORATORS: Location: None imaged Size: NA Reflux: NA VARICOSITIES: Location: None imaged. Size: NA Reflux: NA Great saphenous vein close to 3 cm above the small saphenous vein junction secondary to prior ablation and patent in the mid thigh. 3. DEEP VENOUS ULTRASOUND OF THE LEFT LOWER EXTREMITY: Common Femoral Vein: Compressible, normal respiratory variation and augmented flow. Femoral Vein: Compressible, normal color flow and augmentation. Popliteal Vein: Compressible, normal augmentation. Deep Reflux: There is no evidence of reflux in the deep system in either the common femoral vein, superficial femoral or the popliteal vein. There is no evidence of a Brunner's cyst. 4. SUPERFICIAL ULTRASOUND WITH DOPPLER OF LEFT LOWER EXTREMITY: GREAT SAPHENOUS VEIN: Saphenofemoral Junction: 0.6 cm; Reflux: 0 ms Proximal Thigh: 0.2 cm; Reflux: 0 ms Mid Thigh: 0.2 cm; Reflux: 0 ms Distal Thigh: 0.3 cm; Reflux: 0 ms At Knee: 0.2 cm; Reflux: 0 ms Proximal Calf: 0.1 cm; Reflux: 0 ms Mid Calf: 0.1 cm; Reflux: 0 ms Distal Calf: 0.2 cm; Reflux: No more than 2592 ms DUPLICATED MEDIAL GREAT SAPHENOUS VEIN: Diameter: None imaged Reflux: NA DUPLICATED LATERAL GREAT SAPHENOUS VEIN: Diameter: 0.2 cm. Reflux: NA SMALL SAPHENOUS VEIN: Saphenopopliteal Junction: 0.2 cm; Reflux: 0 ms Proximal: 0.2 cm; Reflux: 0 ms Distal: 0.1 cm; Reflux: 0 ms VEIN OF GIACOMINI: Size: NA Reflux: NA PERFORATORS: Location: None imaged Size: NA Reflux: NA VARICOSITIES: Location: None Imaged Size: NA Reflux: NA US/US venous duplex LE BI IMPRESSION: Right: Venous insufficiency, great saphenous vein below the knee to the ankle. Left: Venous insufficiency, great saphenous vein at the ankle. Electronically signed by: Timothy Weir MD 01/24/2025 12:01 PM EDT
--- OUTSIDE RECORDS SUMMARY | 2025-01-21 08:05 | XMS_ITS ---
Author Organization [facility] Address [address] [place] [address] Care Team Providers Care Broach Setter Name Role Phone Jose Velasco Primary Care Provider UnavailZion Crooks Unavailable [phone] Allergies No Known Allergies REASON FOR VISIT Patient presents today for a SCREENING COLON Medications Medication SIG (Take, Route, Frequency, Duration) Notes Start Date End Date Status valACYclovir HCl 500 MG Oral for 14 as needed Active Immunizations Vaccine Route Administration Date Status Comme nts Influenza Unknown 07/14/2024 Refused Social History Tobacco Use: Social History Observation Description Date Details (start date - stop date) Former Smoker NA - NA Tobacco Use/Smoking Question Answer Notes Patient is [...] drinks (0 point) Points 3 Interpretation Positive Section Notes: Nonsmoker; no sig. alcohol Problems Problem Type SNOMED Code ICD Code Onset Dates Problem Status W/U Status Risk Notes Problem History of adenomatous polyp of colon (178334550) History of adenomatous polyp of colon (Z86.010) Active confirmed Problem Colon cancer screening (870546236) Colon cancer screening (Z12.11) Active confirmed Problem Preprocedural examination (309532559611396) Preprocedural examination (Z01.818) Active confirmed Vital Signs Temperature 97.5 degrees Fahrenheit 07/14/20 24 Blood pressure systolic 000 mm Hg 07/14/20 24 Blood pressure diastolic 00 mm Hg 024 Height 65 in 07/14/2024 Weight 179 lb 8 oz lbs 07/14/2024 BMI 29.87 kg/m2 07/14/2024 Encounters Encounter Location Date Provider Diagnosis [facility] [address] [place] [address] 07/14/2024 Zion Yi History of adenomato us polyp of colon Z86.010 ; Preprocedural examination Z01.818 and Colon cancer screening Z12.11 Assessments Encounter Date Diagnosis (ICD Code) Assessment Notes Treatment Notes Treatment Clinical Notes Section Notes 07/14/2024 History of adenomatous polyp of colon (ICD-10 - Z86.010) Overall, Jim appears quite well. Given her previous history of a tubular adenoma removed over 5 years ago, I did recommend a followup colonoscopy for further screening purposes. We did review the rationale for this in regard to colon cancer prevention. Full consent is obtained from her for this, including risks of bleeding and perforation. The procedure will be done with monitored anesthesia care. Jim was comfortable with this plan. Thank you again for allowing me to participate in Jim's care. I shall continue to keep you advised of her progress. 07/14/2024 Preprocedural examination (ICD-10 - Z01.818) Overall, Jim appears quite well. Given her previous history of a tubular adenoma removed over 5 years ago, I did recommend a followup colonoscopy for further screening purposes. We did review the rationale for this in regard to colon cancer prevention. Full consent is obtained from her for this, including risks of bleeding and perforation. The procedure will be done with monitored anesthesia care. Jim was comfortable with this plan. Thank you again for allowing me to participate in Jim's care. I shall continue to keep you advised of her progress. 07/14/2024 Colon cancer screening (ICD-10 - Z12.11) Overall, Jim appears quite well. Given her previous history of a tubular adenoma removed over 5 years ago, I did recommend a followup colonoscopy for further screening purposes. We did review the rationale for this in regard to colon cancer prevention. Full consent is obtained from her for this, including risks of bleeding and perforation. The procedure will be done with monitored anesthesia care. Jim was comfortable with this plan. Thank you again for allowing me to participate in Jim's care. I shall continue to keep you advised of her progress. Plan Of Treatment Future Test Test Name Order Date COLONOSCOPY 07/14/2024 Next Appt Details Follow Up: prn, Reason: Progress Notes * JIM CORTEZ ANNEDOB:[birth year] (58 yo F)Acc No.[id number]:07/14/2024 Progress Notes Patient:?JIM CORTEZ SERA Provider:?Zion Yi MD :1965???Age:58 Y???Sex:Female D ate:07/14/2024 Address:[address] [place] [address] , [facility], [facility] Pcp:Jose Velasco Subjective: * Chief Complaints: * ???Patient presents today fo r a SCREENING COLON * HPI: ???incontinence:? I saw Jim in the office today for evaluation of her personal history of a tubular adenoma of the colon and need for colorectal cancer screening. ?I last saw Jim in December of 2018 at which time she underwent an initial screening colonoscopy with removal of a small tubular adenoma. She presently feels very well. She enjoys a good appetite, without any significant heartburn or dysphagia. Her bowel movements have been regular and without any signs of bleeding. She denies any abdominal pain, jaundice, nor unintentional weight loss. She denies any known family history of colon cancer. ?Laboratories earlier this year revealed normal chemistries, renal function, and normal LFTs,. * ROS:?General/Constitutional:?Change in appetite?denies.?Chills?denies.?Fatigue?denies.?Ophthalmologic:?Comments?all negative.?ENT:?Comments?all negative.?Respiratory:?hemoptysis?denies.?Cough?denies.?Cardiovascular:?Chest pain?denies.?Orthopnea?denies.?Gastrointestinal:?Comments?See HPI for details.?Genitourinary:?Hematuria?denies.?Dysuria?denies.?Musculoskeletal:?Painful joints?denies.?Weakness?denies.?Skin:?Itching?denies.?Rash?denies.?Neurologic:?Headache?denies.?Seizures?denies.?Psychiatric:?Comments?all negative.? * Medical History:? * Surgical History:?Bladder pimentel spension 05/2016Tonsillectomy * Hospitalization/Major Diagno stic Procedure:?No Hospitalization History. * Family History:?Father: rik garcia, diagnosed with HTN (hypertension).?Mother: alive.? No known hx of colon cancer in first degree relatives. No family history of liver cancer. * Social History:?Tobacco Use:?Tobacco Use/Smoking?Patient is a?former smoker,?When did you stop smoking??over 20 years ago,?How long has it been since you last smoked??> 10 years.?Drugs/Alcohol:?Alcohol Screen?Did you have a drink containing alcohol in the past year??Yes,?How often did you have a drink containing alcohol in the past year??2 to 3 times a week (3 points),?How many drinks did you have on a typical day when you were drinking in the past year??1 or 2 drinks (0 point),?Points?3,?Interpretation?Positive.?Miscellaneous:?Marital status: . 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 ???Nonsmoker; no sig. alcohol. * Medications:?TakingvalACYclo vir HCl 500 MG Tablet Oral , Notes: as neededMedication List reviewed and reconciled with the patientTaking valACYclovir HCl 500 MG Tablet Oral , Notes: as neededMedication List reviewed and reconciled with the patient * Allergies:?N.K.D.A.yes[Aller mt Verified] Objective: * Vitals:?Wt: 179 lb 8 oz, Ht: 65 in, BMI:29.87 Index, BP: 000/00 mm Hg, Temp: 97.5. * Examination: ???General Examination: ?GENERAL APPEARANCE:?pleasant, well nourished, well developed, in no acute distress.?EYES:?sclera non-icteric.?ORAL CAVITY:?mucosa moist.?NECK/THYROID:?no cervical lymphadenopathy, neck supple.?SKIN:?nonjaundiced, no spider angiomata.?HEART:?S1, S2 normal.?LUNGS:?clear to auscultation bilaterally.?ABDOMEN:?normal bowel sounds, no guarding or rigidity, no guarding or rigidity, no masses palpable, soft, nontender, nondistended.?EXTREMITIES:?no edema.?NEUROLOGIC:?alert and oriented.? Assessment: * Assessment: 1.?Preprocedural examination - Z01.818 (Primary)?2.?History of adenomatous polyp of colon - Z86.010?3.?Colon cancer screening - Z12.11? Overall, Jim appears quite well. Given her previous history of a tubular adenoma removed over 5 years ago, I did recommend a followup colonoscopy for further screening purposes. We did review the rationale for this in regard to colon cancer prevention. Full consent is obtained from her for this, including risks of bleeding and perforation. The procedure will be done with monitored anesthesia care. Jim was comfortable with this plan. Thank you again for allowing me to participate in Jim's care. I shall continue to keep you advised of her progress. Plan: * Treatment: 2.?Colon cancer screening?Procedure: COLONOSCOPY (Ordered for 07/14/2024)* with MAC * Immunizations:? Influenza (Not administered - Refused: Patient decision) * Procedure Codes:?3017F COLOR ECTAL CA SCREEN DOC [id number] TOBACCO [id number] BP SCR NOT PRFRM REC REASON NOS * Preventive Medicine:? ??Counseling:?Care goal follow-up plan:?Above Normal BMI Follow-up?Giving encouragement to exercise,?BMI management provided?Yes.? * Follow Up:?prn * * Sign off status: Completed true * Provider:?Zion Yi MD Date:? 024 Generated for Emilianai simone/Subhash/Xin on:?01/21/2025 08:05 AM EST History and Physical Notes * HPI (History of Present Illness) Category Sub-Category Detail Notes Category Not es incontinence I saw Jim in the office today for evaluation of her personal history of a tubular adenoma of the colon and need for colorectal cancer screening. I last saw Jim in December of 2018 at which time she underwent an initial screening colonoscopy with removal of a small tubular adenoma. She presently feels very well. She enjoys a good appetite, without any significant heartburn or dysphagia. Her bowel movements have been regular and without any signs of bleeding. She denies any abdominal pain, jaundice, nor unintentional weight loss. She denies any known family history of colon cancer. Laboratories earlier this year revealed normal chemistries, renal function, and normal LFTs, Examination Category Sub-Category Detail Notes Category Not es General Examination GENERAL APPEARANCE: pleasant , well [...]
--- OUTSIDE RECORDS SUMMARY | 2025-01-21 08:05 | XMS_ITS | Patient Health Record ---
Author Organization [facility] Address [address] [place] [address] Care Team Providers Care School Bus Technician Name Role Phone Jose Velasco Primary Care Provider UnavailZion Crooks Unavailable [phone] Allergies No Known Allergies Reason For Referral No Information Medications Medication SIG (Take, Route, Frequency, Duration) Notes Start Date End Date Status valACYclovir HCl 500 MG Oral for 14 as needed Active Immunizations Vaccine Route Administration Date Status Comme nts Influenza Unknown 10/20/2018 Administered Influenza Unknown 07/14/2024 Refused Social History Tobacco [...] Positive Section Notes: Nonsmoker; no sig. alcohol Nonsmoker; no sig. alcohol Problems Problem Type SNOMED Code ICD Code Onset Dates Problem Status W/U Status Risk Notes Problem Colon cancer screening (623461522) Colon cancer screening (Z12.11) Active confirmed Problem 992448341 Encounter for screening for malignant neoplasm of colon (Z12.11) Active confirmed Problem History of adenomatous polyp of colon (211821228) History of adenomatous polyp of colon (Z86.010) Active confirmed Problem Diverticular disease of colon (556683235) Diverticulosis of large intestine without perforation or abscess without bleeding (K57.30) Active confirmed Problem Preprocedural examination (534985579643201) Preprocedural examination (Z01.818) Active confirmed Problem 461818338817494 Pre-procedural examination (Z01.818) Active confirmed Vital Signs Temperature 97.5 degrees Fahrenheit 07/14/2024 Blood pressure diastolic 00 mm Hg 07/14/2024 Height 65 in 07/14/2024 Blood pressure systolic 000 mm Hg 07/14/2024 Weight 179 lb 8 oz lbs 07/14/2024 BMI 29.87 kg/m2 07/14/2024 Encounters Encounter Location Date Provider Diagnosis [facility] [place] [address] [place] [phone] 11/22/2024 Zion Kassidy Colon cancer screeni ng Z12.11 ; Personal history of colonic polyps Z86.0100 ; Diverticulosis of large intestine without perforation or abscess without bleeding K57.30 and Other hemorrhoids K64.8 [facility] [address] [place] [phone] 07/14/2024 Zion Yi History of adenomato us polyp of colon Z86.010 ; Preprocedural examination Z01.818 and Colon cancer screening Z12.11 [facility] [address] [facility] [address] [place] [phone] 03/15/2024 Zion Yi Assessments Encounter Date Diagnosis (ICD Code) Assessment Notes Treatment Notes Treatment Clinical Notes Section Notes 11/22/2024 Colon cancer screening (ICD-10 - Z12.11) 11/22/2024 Personal history of colonic polyps (ICD-10 - Z86.0100) 07/14/2024 History of adenomatous polyp of colon [...] to keep you advised of her progress. 11/22/2024 Diverticulosis of large intestine without perforation or abscess without bleeding (ICD-10 - K57.30) 07/14/2024 Colon cancer screening (ICD-10 - Z12.11) [...] to keep you advised of her progress. 11/22/2024 Other hemorrhoids (ICD-10 - K64.8) Plan Of Treatment Future Test Test Name Order Date COLONOSCOPY 10/20/2018 COLONOSCOPY 07/14/2024 Insurance Providers Payer Name Payer Address Payer Phone Subscriber Number Group Number Insured Name Patient Relationship to Insured Coverage Start Date Coverage End Date [facility] Insurance ([employer]) [address] [place] [address] [id number] JIM CORTEZ SERA Self - patient is the insured Medical (General) History Medical History History ICD Code Denies DE,DM,CVA,Lung disease,renal dise ase Colonoscopy in 12/2018 with a small tubul ar adenoma removed Surgical History Surgery Date(Month/Year) Bladder suspension 05/2016 Tonsillectomy
--- OUTSIDE RECORDS SUMMARY | 2025-01-21 08:05 | XMS_ITS ---
Author Organization [facility] Address [address] [place] [address] Care Team Providers Care University Services Program Associate Name Role Phone Jose Velasco Primary Care Provider Unavailab Zion Calloway [phone] REASON FOR VISIT Patient presents today for a SCREENING COLON Encounters Encounter Location Date Provider Diagnosis [facility] [address] [place] [address] 03/17/2024 Zion Yi Plan Of Treatment No Information Progress Notes * JIM CORTEZ GERAEDOB:[birth year] (59 yo F)Acc No.[id number]:03/17/2024 Progress Notes Patient:?JIM CORTEZ Provider:?Zion Yi MD :1965???Age:58 Y???Sex:Female D ate:03/17/2024 Address:[address] [id number] Pcp:Jose Velasco Subjective: * Chief Complaints: * ???1. Patient presents today for a SCREENING COLON. * Medical History:? Objective: * Vitals:? Assessment: Plan: * Treatment: * * The named appointment provid er may or may not be the originator of this progress note, and it is not deemed complete until electronically signed by the appointment provider. Sign off status: Pending * Provider:?Zion Yi MD Date:? 024 Generated for Marquis nichols/Subhash/eTransmitting on:?01/21/2025 08:05 AM EST
--- OUTSIDE RECORDS SUMMARY | 2025-01-21 08:06 | XMS_ITS ---
Author Organization [facility] Address [address] [place] [address] Care Team Providers Care Passenger Service Manager Name Role Phone Jose Velasco Primary Care Provider Unavailab Zion Calloway [phone] REASON FOR VISIT colon screening Problems Problem Type SNOMED Code ICD Code Onset Dates Problem Status W/U Status Risk Notes Problem Diverticular disease of colon (381213014) Diverticulosis of large intestine without perforation or abscess without bleeding (K57.30) Active confirmed Encounters Encounter Location Date Provider Diagnosis [facility] [place] [address] [place] [phone] 11/22/2024 Zion Yi Colon cancer scree ely [...] Notes * JIM CORTEZOB:[birth year] (59 yo F)Acc No.[id number]:11/22/2024 COLON WITH MAC Patient:?JIM CORTEZ Provider:?Zion Yi MD :1965???Age:59 Y???Sex:Female D ate:11/22/2024 Address:[address] [place], [place] [address] , [id number] Pcp:Jose Velasco Subjective: * Chief Complaints: * ???1. Colon screening. * Medical History:? Objective: * Vitals:? Assessment: * Assessment: 1.?Colon cancer screening - Z12.11 (Primary)???2.?Personal history of colonic polyps - Z86.0100???3.?Diverticulosis of large intestine without perforation or abscess without bleeding - K57.30???4.?Other hemorrhoids - K64.8??? Plan: * Treatment: * Procedure Codes:?17916 DIAGN OSTIC COLONOSCOPY * * The named appointment provid er may or may not be the originator of this progress note, and it is not deemed complete until electronically signed by the appointment provider. Sign off status: Pending * Provider:?Zion Yi MD Date:? 025 Generated for Marquis nichols/Subhash/eTransmitting on:?01/21/2025 08:05 AM EST
== END 2025-01-21 08:02 | disposition home or self-care (01) ==
LOC: HO.US 08:01
PROVIDERS: PCP Nurse Practitioner Family; Visit Provider Surgery Vascular Surgery
DX: I83.11 Varicose veins of right lower extremity with inflammation (principal)
CPT/HCPCS: 93970

== ENCOUNTER → 2025-01-21 08:03 | Outpatient (BNV) | payer OTHER, SELFPAY | PROVIDERS: PCP Nurse Practitioner Family; Visit Provider Radiology Diagnostic Radiology | DX: I83.11 Varicose veins of right lower extremity with inflammation (principal) | CPT/HCPCS: 93970 ==

== ENCOUNTER 2025-03-22 09:07 | Outpatient (AMB) | payer OTHER, SELFPAY ==
--- NOTE | 2025-03-22 09:07 | A.OFFVIS_ITS ---
Vital Signs 03/22/25 09:08 Height 5 ft 5 in Weight 180 lb BMI 30.0 BP 112/74 Blood Pressure Location Lt brachial Position Sitting Intake Visit Reasons: Follow up 01/21 US Intake Note: Pt presents to the office today for a follow up US done 01/21/25. Allergies No Known Allergies [No Known Allergies*] Allergy (Verified 03/22/25 09:08) HPI HPI Follow up 01/21 US: Details: The patient is a 59-year-old female presenting for follow-up of venous insufficiency. She has a significant history of venous ablations carried out approximately [address] Kiran. Presently, she reports the presence of a cluster of veins in her right calf that causes discomfort and on occasion does cause her calf discomfort on the right. The previous ablation on the upper part of the same leg remains stable. The patient discussed that maintaining a particular body weight has been a challenge, which may exacerbate her venous condition. The right leg, especially a vein cluster in the calf region, is her primary concern now, while the left leg shows no significant issues currently. 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 [employer] Cognitive needs: No Hearing needs: No Vision needs: Yes Review of Systems Const Reports as per HPI ENT Reports no additional complaints Card Denies chest pain, Denies chest pain at rest and Denies chest pain with activity Resp Denies chest congestion and Denies cough GI Reports no additional complaints Musc Details: pain over varicosities, aching of lower extremities, swelling, cramping, heaviness and tiredness, itching Denies abnormal gait Skin/Breast Reports pruritus and Denies wounds Neuro Reports no additional complaints and Denies abnormal gait Psych Denies no additional complaints Physical Exam Vital Signs: Last Vital Signs BP 112/74 03/22/25 09:08 BMI result Body Mass Index 30.0 Const General: cooperative, healthy appearing and comfortable Orientation/consciousness: oriented to person, oriented to place and oriented to time Neck Carotids: no bruits Chest Chest palpation & inspection: normal inspection of the chest and normal palpation of entire chest wall Resp Effort & Inspection: normal respiratory effort and able to speak in complete sentences Cardio Rate: regular rate Heart sounds: S1 normal heart sound present and S2 normal heart sound present Peripheral pulses: Peripheral pulses 2+ throughout GI Inspection: Yes normal to inspection Skin Other: +2 edema, large rope-like varicosities greater than 4 mm right calf cluster CEAP Classification C4 - skin color changes Ep - Etiology Primary As - superficial veins P - reflux General skin exam: dry skin Neuro General: oriented to person, oriented to place and oriented to time Extrem Right lower extremity: full ROM, normal capillary refill and edema Left lower extremity: full ROM, normal capillary refill and edema Psych Mental Status: mental status grossly normal Results Reviewed Results Reviewed: Brief summary of venous insufficiency testing is as follows: right great saphenous vein: Positive in right calf right small saphenous vein: negative right accessory vein: none present left great saphenous vein: negative left small saphenous vein: negative left accessory vein: none present Please note there is no evidence of any venous aneurysms or significant tortuosity Assessment & Plan Assessment & Plan (1) Varicose veins of right lower extremity with inflammation: Code(s): I83.11 - Varicose veins of right lower extremity with inflammation Category: Medical Plan: This patient has varicose veins with inflammation. They continue to be a source of discomfort for the patient. The patient has tried conservative treatment with compression, leg elevation and exercise program for over 3 months time. They have been compliant with all treatment. This has provided minimal relief for the patient. I do not anticipate this course of treatment will alter the underlying etiology. The patient has been scheduled for lower extremity venous treatment inclusive of --- right great saphenous vein Cyanoacralate ablation. Risks, benefits, and complications of this procedure has been discussed in detail with the patient including but not limited to bleeding, infection, and the development of a DVT. The patient has demonstrated a clear understanding and has consented. We will schedule the patient as soon as possible. Thank you for allowing us to participate in this patient's care. If there are any questions or concerns please do not hesitate to contact us. Coding Level of Care Code Est Pt Level 4 (38394) Diagnoses Varicose veins of right lower extremity with inflammation I83.11
[2025-03-22 09:08] VITALS: BP 112/74
--- OUTSIDE RECORDS SUMMARY | 2025-03-22 09:54 | XMS_ITS ---
Author Organization [facility] Address [address] [place] [address] Care Team Providers Care Fuel Cell Binder Name Role Phone Jose Velasco Primary Care Provider Unavailab Zion Calloway [phone] REASON FOR VISIT colon screening Problems Problem Type SNOMED Code ICD Code Onset Dates Problem Status W/U Status Risk Notes Problem Diverticular disease of colon (178085856) Diverticulosis of large intestine without perforation or abscess without bleeding (K57.30) Active confirmed Encounters Encounter Location Date Provider Diagnosis [facility] Out[facility] [address] [place] [phone] 11/22/2024 Zion Yi Colon cancer scree ely [...] Notes * JIM CORTEZOB:[birth year] (59 yo F)Acc No.[id number]:11/22/2024 COLON WITH MAC Patient:?JIM CORTEZ Provider:?Zion Yi MD :1965???Age:59 Y???Sex:Female D ate:11/22/2024 Address:[address] [place], [place] [address] [place] , [place], [place] Pcp:Jose Velasco Subjective: * Chief Complaints: * ???1. Colon screening. * Medical History:? Objective: * Vitals:? Assessment: * Assessment: 1.?Colon cancer screening - Z12.11 (Primary)???2.?Personal history of colonic polyps - Z86.0100???3.?Diverticulosis of large intestine without perforation or abscess without bleeding - K57.30???4.?Other hemorrhoids - K64.8??? Plan: * Treatment: * Procedure Codes:?88083 DIAGN OSTIC COLONOSCOPY * * The named appointment provid er may or may not be the originator of this progress note, and it is not deemed complete until electronically signed by the appointment provider. Sign off status: Pending * Provider:?Zion Yi MD Date:? 025 Generated for Marquis nichols/Subhash/eTransmitting on:?03/22/2025 09:54 AM EDT
--- OUTSIDE RECORDS SUMMARY | 2025-03-22 09:54 | XMS_ITS ---
Author Organization [facility] Address [address] [place] [address] Care Team Providers Care Raveler Name Role Phone Jose Velasco Primary Care Provider UnavailZion Crooks Unavailable [phone] Allergies No Known Allergies REASON FOR VISIT [...] Problem History of adenomatous polyp of colon (907147957) History of adenomatous polyp of colon (Z86.010) Active confirmed Problem Colon cancer screening (245582158) Colon cancer screening (Z12.11) Active confirmed Problem Preprocedural examination (368989487884895) Preprocedural examination (Z01.818) Active confirmed Vital Signs Temperature 97.5 degrees Fahrenheit 07/14/20 24 Blood pressure systolic 000 mm Hg 07/14/20 24 Blood pressure diastolic 00 mm Hg 024 Height 65 in 07/14/2024 Weight 179 lb 8 oz lbs 07/14/2024 BMI 29.87 kg/m2 07/14/2024 Encounters Encounter Location Date Provider Diagnosis [facility] [address] [place] [address] 07/14/2024 Zion Yi History of adenomato us [...] * JIM CORTEZ ANNEDOB:[birth year] (58 yo F)Acc No.[id number]:07/14/2024 Progress Notes Patient:?JIM CORTEZ SERA Provider:?Zion Yi MD :1965???Age:58 Y???Sex:Female D ate:07/14/2024 Address:[address] [place] [address] , [facility], [facility] Pcp:Jose Velasco Subjective: * Chief Complaints: * [...] drinks (0 point),?Points?3,?Interpretation?Positive.?Miscellaneous:?Marital status: . 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 ???Nonsmoker; no sig. alcohol. * Medications:?TakingvalACYclo [...] Procedure Codes:?3017F COLOR ECTAL CA SCREEN DOC STX1568B TOBACCO NON-OMBJN2592 BP SCR NOT PRFRM REC REASON NOS * Preventive Medicine:? ??Counseling:?Care goal follow-up plan:?Above Normal BMI Follow-up?Giving encouragement to exercise,?BMI management provided?Yes.? * Follow Up:?prn * * Sign off status: Completed true * Provider:?Zion Yi MD Date:? 024 Generated for Emilianai simone/Subhash/Xin on:?03/22/2025 09:53 AM EDT History and Physical Notes * HPI (History [...]
--- OUTSIDE RECORDS SUMMARY | 2025-03-22 09:54 | XMS_ITS | Patient Health Record ---
Author Organization [facility] Address [address] [place] [address] Care Team Providers Care Sales Account Leader Name Role Phone Jose Velasco Primary Care Provider UnavailZion Crooks Unavailable [phone] Allergies No Known Allergies Reason For Referral [...] Status Risk Notes Problem Colon cancer screening (290439345) Colon cancer screening (Z12.11) Active confirmed Problem 864671954 Encounter for screening for malignant neoplasm of colon (Z12.11) Active confirmed Problem History of adenomatous polyp of colon (621447512) History of adenomatous polyp of colon (Z86.010) Active confirmed Problem Diverticular disease of colon (771723492) Diverticulosis of large intestine without perforation or abscess without bleeding (K57.30) Active confirmed Problem Preprocedural examination (239768516352342) Preprocedural examination (Z01.818) Active confirmed Problem 987179698959230 Pre-procedural examination (Z01.818) Active confirmed Vital Signs Temperature 97.5 degrees Fahrenheit 07/14/2024 Blood pressure diastolic 00 mm Hg 07/14/2024 Height 65 in 07/14/2024 Blood pressure systolic 000 mm Hg 07/14/2024 Weight 179 lb 8 oz lbs 07/14/2024 BMI 29.87 kg/m2 07/14/2024 Encounters Encounter Location Date Provider Diagnosis [facility] Out[facility] [address], [place] [phone] 11/22/2024 Zion Yi Colon cancer screeni ng Z12.11 ; Personal history of colonic polyps Z86.0100 ; Diverticulosis of large intestine without perforation or abscess without bleeding K57.30 and Other hemorrhoids K64.8 [facility] [address] [place] [address] 07/14/2024 Zion Yi History of adenomato us [...] Insured Coverage Start Date Coverage End Date [facility] [address] [place] [address] [phone] [id number] JIM CORTEZ Self - patient is the insured Medical (General) History Medical History History ICD Code Denies [place],DM,CVA,Lung disease,renal dise ase Colonoscopy in 12/2018 with a small tubul ar adenoma removed Surgical History Surgery Date(Month/Year) Bladder suspension 05/2016 Tonsillectomy
--- OUTSIDE RECORDS SUMMARY | 2025-03-22 09:54 | XMS_ITS ---
Author Organization [facility] Address [address] [place] [address] Care Team Providers Care Road Passenger Firer Name Role Phone Jose Velasco Primary Care Provider Unavailab Zion Calloway [phone] REASON FOR VISIT Patient presents today for a SCREENING COLON Encounters Encounter Location Date Provider Diagnosis [facility] [address] [place] [address] 03/17/2024 Zion Yi Plan Of Treatment No Information Progress Notes * JIM CORTEZ GERAEDOB:[birth year] (59 yo F)Acc No.[id number]:03/17/2024 Progress Notes Patient:?JIM CORTEZ Provider:?Zion Yi MD :1965???Age:58 Y???Sex:Female D ate:03/17/2024 Address:[address] [place] Pcp:Jose Velasco Subjective: * Chief Complaints: * [...] Yi MD Date:? 024 Generated for Emilianai simone/Subhash/eTransmitting on:?03/22/2025 09:54 AM EDT
== END 2025-03-22 09:26 | disposition home or self-care (01) ==
LOC: HO.HVS 09:08
PROVIDERS: PCP Family Medicine; Visit Provider Surgery Vascular Surgery
DX: I83.11 Varicose veins of right lower extremity with inflammation (principal)
CPT/HCPCS: 99214

== ENCOUNTER → 2025-03-22 09:07 | Outpatient (BNVA) | payer OTHER, SELFPAY | PROVIDERS: PCP Family Medicine; Visit Provider Surgery Vascular Surgery ==

== ENCOUNTER 2025-04-01 08:16 | Outpatient (AMB) | payer OTHER, SELFPAY ==
--- OUTSIDE RECORDS SUMMARY | 2025-04-01 08:37 | XMS_ITS | Patient Health Record ---
Author Organization [facility] Address [address] [place] [address] Care Team Providers Care Montessori Paraprofessional Name Role Phone Jose Velasco Primary Care Provider UnavailZion Crooks Unavailable [phone] Allergies No Known Allergies Reason For Referral [...] Status Risk Notes Problem Colon cancer screening (835485477) Colon cancer screening (Z12.11) Active confirmed Problem 951725875 Encounter for screening for malignant neoplasm of colon (Z12.11) Active confirmed Problem History of adenomatous polyp of colon (217337531) History of adenomatous polyp of colon (Z86.010) Active confirmed Problem Diverticulosis o f large intestine without perforation or abscess without bleeding (K57.30) Active confirmed Problem Preprocedural examination (984506751298335) Preprocedural examination (Z01.818) Active confirmed Problem 013378064017983 Pre-procedural examination (Z01.818) Active confirmed Vital Signs Temperature 97.5 degrees Fahrenheit 07/14/2024 Blood pressure diastolic 00 mm Hg 07/14/2024 Height 65 in 07/14/2024 Blood pressure systolic 000 mm Hg 07/14/2024 Weight 179 lb 8 oz lbs 07/14/2024 BMI 29.87 kg/m2 07/14/2024 Encounters Encounter Location Date Provider Diagnosis [facility] [place] [address] [place], [place] [phone] 11/22/2024 Zion Yi Colon cancer screeni ng Z12.11 ; Personal history of colonic polyps Z86.0100 ; Diverticulosis of large intestine without perforation or abscess without bleeding K57.30 and Other hemorrhoids K64.8 [facility] [address] [place] [address] 07/14/2024 Zion Yi History of adenomato us [...] Insured Coverage Start Date Coverage End Date [facility] Insurance ([employer]) [address] [place] [address] [id number] JIM CORTEZ Self - patient is the insured Medical (General) History Medical History History ICD Code Denies [place],DM,CVA,Lung disease,renal dise ase Colonoscopy in 12/2018 with a small tubul ar adenoma removed Surgical History Surgery Date(Month/Year) Bladder suspension 05/2016 Tonsillectomy
--- OUTSIDE RECORDS SUMMARY | 2025-04-01 08:37 | XMS_ITS ---
Author Organization [facility] Address [address] [place] [address] Care Team Providers Care Poured Pipe Maker Name Role Phone Jose Velasco Primary Care Provider UnavailZion Crooks Unavailable [phone] Allergies No Known Allergies REASON FOR VISIT [...] Problem History of adenomatous polyp of colon (490671572) History of adenomatous polyp of colon (Z86.010) Active confirmed Problem Colon cancer screening (089151626) Colon cancer screening (Z12.11) Active confirmed Problem Preprocedural examination (090683455827373) Preprocedural examination (Z01.818) Active confirmed Vital Signs Temperature 97.5 degrees Fahrenheit 07/14/20 24 Blood pressure systolic 000 mm Hg 07/14/20 24 Blood pressure diastolic 00 mm Hg 024 Height 65 in 07/14/2024 Weight 179 lb 8 oz lbs 07/14/2024 BMI 29.87 kg/m2 07/14/2024 Encounters Encounter Location Date Provider Diagnosis [facility] [address] [place] [address] 07/14/2024 Zion Yi History of adenomato us [...] * JIM CORTEZ ANNEDOB:[birth year] (58 yo F)Acc No.[id number]:07/14/2024 Progress Notes Patient:?JIM CORTEZ SERA Provider:?Zion Yi MD :1965???Age:58 Y???Sex:Female D ate:07/14/2024 Address:[address] [place] [address] , [facility], [facility] Pcp:Jose Velasco Subjective: * Chief Complaints: * [...] drinks (0 point),?Points?3,?Interpretation?Positive.?Miscellaneous:?Marital status: . 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 ???Nonsmoker; no sig. alcohol. * Medications:?TakingvalACYclo [...] Procedure Codes:?3017F COLOR ECTAL CA SCREEN DOC XHQ9120B TOBACCO NON-ZGCMK5534 BP SCR NOT PRFRM REC REASON NOS * Preventive Medicine:? ??Counseling:?Care goal follow-up plan:?Above Normal BMI Follow-up?Giving encouragement to exercise,?BMI management provided?Yes.? * Follow Up:?prn * * Sign off status: Completed true * Provider:?Zion Yi MD Date:? 024 Generated for Emilianai simone/Subhash/Xin on:?04/01/2025 08:37 AM EDT History and Physical Notes * [...]
--- OUTSIDE RECORDS SUMMARY | 2025-04-01 08:38 | XMS_ITS ---
Author Organization [facility] Address [address] [place] [address] Care Team Providers Care Postal Delivery Officer Name Role Phone Jose Velasco Primary Care Provider Unavailab Zion Calloway Unavailable [phone] REASON FOR VISIT colon screening Problems Problem Type SNOMED Code ICD Code Onset Dates Problem Status W/U Status Risk Notes Problem Diverticulosis o f large intestine without perforation or abscess without bleeding (K57.30) Active confirmed Encounters Encounter Location Date Provider Diagnosis [facility] [address] [place], [place] [id number] 11/22/2024 Zion Yi Colon cancer scree ely [...] Notes * JIM CORTEZOB:[birth year] (59 yo F)Acc No.[id number]:11/22/2024 COLON WITH MAC Patient:?JIM CORTEZ Provider:?Zion Yi MD :1965???Age:59 Y???Sex:Female D ate:11/22/2024 Address:[address] [place] [address] , [id number] Pcp:Jose Velasco Subjective: * Chief Complaints: * ???1. Colon screening. * Medical History:? Objective: * Vitals:? Assessment: * Assessment: 1.?Colon cancer screening - Z12.11 (Primary)???2.?Personal history of colonic polyps - Z86.0100???3.?Diverticulosis of large intestine without perforation or abscess without bleeding - K57.30???4.?Other hemorrhoids - K64.8??? Plan: * Treatment: * Procedure Codes:?51461 DIAGN OSTIC COLONOSCOPY * * The named appointment provid er may or may not be the originator of this progress note, and it is not deemed complete until electronically signed by the appointment provider. Sign off status: Pending * Provider:?Zion Yi MD Date:? 025 Generated for Marquis nichols/Subhash/eTransmitting on:?04/01/2025 08:37 AM EDT
--- OUTSIDE RECORDS SUMMARY | 2025-04-01 08:38 | XMS_ITS ---
Author Organization [facility] Address [address] [place] [address] Care Team Providers Care Softball Core Molder Name Role Phone Jose Velasco Primary Care Provider Unavailab Zion Calloway [phone] REASON FOR VISIT Patient presents today for a SCREENING COLON Encounters Encounter Location Date Provider Diagnosis [facility] [address] [place] [address] 03/17/2024 Zion Yi Plan Of Treatment No Information Progress Notes * JIM CORTEZ GERAEDOB:[birth year] (59 yo F)Acc No.[id number]:03/17/2024 Progress Notes Patient:?JIM CORTEZ Provider:?Zion Yi MD :1965???Age:58 Y???Sex:Female D ate:03/17/2024 Address:[address] [id number] Pcp:Jose Velasco Subjective: * Chief Complaints: * [...] MD Date:? 024 Generated for Emilianai simone/Subhash/eTransmitting on:?04/01/2025 08:37 AM EDT
--- NOTE | 2025-04-01 09:02 | A.OFFVIS_ITS ---
Vital Signs 04/01/25 09:02 Height 5 ft 5 in Weight 180 lb BMI 30.0 Intake Visit Reasons: Right Venaseal Accompanied by: Self / Same As Patient Allergies No Known Allergies [No Known Allergies*] Allergy (Verified 04/01/25 09:03) PFSH Medical History Rosacea Psoriasis Anxiety Varicose vein of leg Tubular adenoma of colon Surgical History Hx of tonsillectomy History of bladder suspension procedure H/O colonoscopy Social History Household Members: Spouse Housing: House Alcohol intake: current Alcohol intake frequency: a few times a week Alcohol type: wine and hard liquor Patient Tobacco Use Status: Former Tobacco user Tobacco use type: Cigarette Current occupational status: employed 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 The depth and diameter of the vein(s) to be treated was documented. The patient was placed supine on the procedure table and the leg was prepped and draped using sterile technique. Ultasound guidance was again used to localize the access site. 1% lidocaine was injected as a local anesthetic in the subcutaneous tissues at the target location in the GSV in the lower leg. Using ultrasound guidance, access was gained at this location with the 19 gauge thin walled access needle and followed by introduction of a short guidewire, location confirmed with ultrasound. A small, 3 mm incision was made at the access site to allow for introduction and placement of the 7 Fr x7cm introducer/dilator. The dilator and guidewire were removed. The 0.035 guidewire from the VenaSeal kit was then introduced and positioned at the saphenofemoral junction using ultrasound guidance. The 80 cm 7 Fr introducer sheath/dilator was positioned as far proximal as it would go. We did access down in the mid calf it went up into the mid thigh. The more proximal portion had been ablated several years prior.. The guidewire and dilator were removed, and the remaining sheath was flushed with sterile saline, with the syringe remaining in place prior to the next steps. The cyanoacrylate adhesive was precisely primed into the 5 F delivery catheter and this catheter/syringe combination was attached within the dispenser gun. This assembly was introduced through the 7F sheath and positioned up to the mid thigh as far as we were safely in the vein.. The steps from the IFU were followed for dispensing amounts, locations and compression times, 2 aliquots proximally with 3 minutes of compression, and 1 aliquot every 3 cm distally with 30 sec of compression along the course of the vessel. Following the last injection and compression sequence, the catheter and introducer sheath were pulled out from the access site. Hemostasis was achieved with manual compression and an adhesive bandage was applied to the incision. Ultrasound confirmed complete coaptation and closure of the treated segments of the GSV, and the absence of any DVT at the saphenofemoral junction. Treatment time was approximately 4 minutes and the vein length treated was 25 cm. The drapes were removed and the patient cleaned and prepared for discharge. Post op ultrasound check is scheduled for 48-72 hours and the patient was given written post-op instructions. 67630 - Endoven Ther Chem Adhes 1st All charges added?: Procedure code (CPT) selection complete Assessment & Plan Assessment & Plan (1) Varicose veins of right lower extremity with inflammation: Comment: 04/01/2025 - right great saphenous vein Cyanoacralate ablation Code(s): I83.11 - Varicose veins of right lower extremity with inflammation Category: Medical Plan: See op note Coding Level of Care Code Procedure Only Diagnoses Varicose veins of right lower extremity with inflammation I83.11 CPT Codes Details - Vascular 3: 79812 - Endoven Ther Chem Adhes 1st ([id number])
== END 2025-04-01 10:28 | disposition home or self-care (01) ==
LOC: HO.HVS 08:27
PROVIDERS: PCP Family Medicine; Visit Provider Surgery Vascular Surgery
DX: I83.11 Varicose veins of right lower extremity with inflammation (principal)
CPT/HCPCS: 36482

== ENCOUNTER → 2025-04-01 08:16 | Outpatient (BNVA) | payer OTHER, SELFPAY | PROVIDERS: PCP Family Medicine; Visit Provider Surgery Vascular Surgery | DX: I83.11 Varicose veins of right lower extremity with inflammation (principal) | CPT/HCPCS: 36482; J2003 ==

== ENCOUNTER 2025-04-08 09:21 | Outpatient (REF) | payer OTHER, SELFPAY ==
--- OUTSIDE RECORDS SUMMARY | 2025-04-08 09:35 | XMS_ITS ---
Author Organization 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 Name Role Phone Jose Velasco Primary Care Provider UnavailZion Crooks Unavailable [phone] Allergies No Known Allergies REASON FOR VISIT [...] Problem History of adenomatous polyp of colon (562570302) History of adenomatous polyp of colon (Z86.010) Active confirmed Problem Colon cancer screening (783512212) Colon cancer screening (Z12.11) Active confirmed Problem Preprocedural examination (832712322451004) Preprocedural examination (Z01.818) Active confirmed Vital Signs Temperature 97.5 degrees Fahrenheit 07/14/20 24 Blood pressure systolic 000 mm Hg 07/14/20 24 Blood pressure diastolic 00 mm Hg 024 Height 65 in 07/14/2024 Weight 179 lb 8 oz lbs 07/14/2024 BMI 29.87 kg/m2 07/14/2024 Encounters Encounter Location Date Provider Diagnosis [facility] [address] [place] [address] 07/14/2024 Zion Yi History of adenomato us [...] * JIM CORTEZ ANNEDOB:[birth year] (58 yo F)Acc No.[id number]:07/14/2024 Progress Notes Patient:?JIM CORTEZ SERA Provider:?Zion Yi MD :1965???Age:58 Y???Sex:Female D ate:07/14/2024 Address:[address] [place] [address] , [facility], [facility] Pcp:Jose Velasco Subjective: * Chief Complaints: * [...] drinks (0 point),?Points?3,?Interpretation?Positive.?Miscellaneous:?Marital status: . 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 ???Nonsmoker; no sig. alcohol. * Medications:?TakingvalACYclo vir [...] Procedure Codes:?3017F COLOR ECTAL CA SCREEN DOC [id number] TOBACCO [id number] BP SCR NOT PRFRM REC REASON NOS * Preventive Medicine:? ??Counseling:?Care goal follow-up plan:?Above Normal BMI Follow-up?Giving encouragement to exercise,?BMI management provided?Yes.? * Follow Up:?prn * * Sign off status: Completed true * Provider:?Zion Yi MD Date:? 024 Generated for Emilianai simone/Subhash/Xin on:?04/08/2025 09:35 AM EDT History and Physical Notes * [...]
== END 2025-04-08 09:22 | disposition home or self-care (01) ==
LOC: HO.MAMMO 09:21
PROVIDERS: PCP Family Medicine; Referring Provider Obstetrics & Gynecology; Visit Provider Family Medicine
DX: Z12.31 Encounter for screening mammogram for malignant neoplasm of breast (principal)
CPT/HCPCS: 77063; 77067

== ENCOUNTER → 2025-04-08 09:30 | Outpatient (BNV) | payer OTHER, SELFPAY | PROVIDERS: PCP Family Medicine; Referring Provider Obstetrics & Gynecology; Visit Provider Internal Medicine | DX: Z12.31 Encounter for screening mammogram for malignant neoplasm of breast (principal) | CPT/HCPCS: 77063; 77067 ==

== ENCOUNTER 2025-04-14 08:54 | Outpatient (AMB) | payer OTHER, SELFPAY ==
--- NOTE | 2025-04-14 09:00 | A.OFFVIS_ITS ---
Intake Visit Reasons: 2 week follow up s/p R Venaseal 04/01/25 Intake Note: Patient states she has some discoloration on her leg, no pain. Accompanied by: Self / Same As Patient Allergies No Known Allergies [No Known Allergies*] Allergy (Verified 04/14/25 09:01) [facility] HPI 2 week follow up s/p R Venaseal 04/01/25: Details: The patient is a 59-year-old female presenting for a follow-up evaluation after undergoing a right great saphenous vein Cyanoacralate ablation. Post- procedurally, she experienced redness and inflammation in the treated area, consistent with phlebitis. These symptoms appeared approximately two weeks post- procedure and included a hardening of the vein, which is expected as part of the healing process. The patient describes the sensation in the area as a dull toothache but denies any significant pain or itching. She now presents for routine postprocedure follow-up. 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 Cognitive needs: No Hearing needs: No Vision needs: Yes Review of Systems Const All systems reviewed & are unremarkable except as noted in HPI and below Reports no additional complaints ENT Reports Normal hearing present Card Denies chest pain, Denies chest pain at rest, Denies chest pain with activity and Denies pedal edema Resp Denies cough GI Denies abdominal pain Musc Denies abnormal gait, Denies muscle cramps and Denies radiating pain into limb Skin/Breast Denies skin ulcer and Denies wounds Neuro Reports Normal hearing present and Denies abnormal gait Psych Reports no additional complaints Physical Exam Const General: cooperative, healthy appearing and comfortable Orientation/consciousness: oriented to person, oriented to place and oriented to time HEENT Head: Yes normal to inspection Neck Neck: Yes normal visual inspection Carotids: no bruits Chest Chest palpation & inspection: normal inspection of the chest Resp Effort & Inspection: normal respiratory effort and able to speak in complete sentences Auscultation: clear to auscultation bilaterally, no crackles, no rales, no rhonchi and no wheezes Cardio Rate: regular rate Rhythm: regular rhythm Heart sounds: S1 normal heart sound present and S2 normal heart sound present Bruits: no carotid bruits Peripheral pulses: Peripheral pulses 2+ throughout GI Inspection: Yes normal to inspection Skin Wounds: no wounds Hair: normal Neuro General: oriented to person, oriented to place and oriented to time Cranial nerves: Yes CN's II-XII intact bilaterally and Yes Normal hearing present Cognition (Neuro): normal cognition Motor exam (neuro): 5/5 motor strength present throughout Extrem Other: venous exam: Right medial thigh mild phlebitis General: No clubbing, No cyanosis and No edema Psych Appearance: grossly normal Mental Status: mental status grossly normal Speech and movement: Normal speech and movement present Assessment & Plan Assessment & Plan (1) Varicose veins of right lower extremity with inflammation: Comment: 04/01/2025 - right great saphenous vein Cyanoacralate ablation Code(s): I83.11 - Varicose veins of right lower extremity with inflammation Category: Medical Plan: The patient has done extremely well with all venous treatments. Patient's may often experience postprocedure phlebitic episodes and I have discussed with the patient use of warm compresses and NSAIDS if tolerated for pain discomfort. In addition, I have discussed continued conservative measures including use of compression, leg elevation, and exercise. The patient was also given an information sheet regarding appropriate use of compression stockings and future purchases. Thank you for allowing us to care for your patient with venous disease. Plan Patient was informed and verbally consented to the use of an ambient scribe for clinic note documentation during this visit. Patient Instructions: - Use warm compresses on the affected area to ease discomfort. - Monitor for increased redness, swelling, or itching, and contact our office if these occur. - Slowly increase activity as tolerated. - Follow up with our office if symptoms worsen or new symptoms develop. Coding Level of Care Code Est Pt Level 3 (27235) Diagnoses Varicose veins of right lower extremity with inflammation I83.11
== END 2025-04-14 09:17 | disposition home or self-care (01) ==
LOC: HO.HVS 08:54
PROVIDERS: PCP Family Medicine; Visit Provider Surgery Vascular Surgery
DX: I83.11 Varicose veins of right lower extremity with inflammation (principal)
CPT/HCPCS: 99213

== ENCOUNTER → 2025-04-14 08:54 | Outpatient (BNVA) | payer OTHER, SELFPAY | PROVIDERS: PCP Family Medicine; Visit Provider Surgery Vascular Surgery ==

== ENCOUNTER 2025-06-09 08:00 | Outpatient (AMB) | payer OTHER, SELFPAY ==
--- NOTE | 2025-06-09 08:03 | A.OFFPC_ITS ---
Vital Signs 06/09/25 08:08 Height 5 ft 5 in Weight 172 lb 6 oz BMI 28.7 BP 102/67 Blood Pressure Location Lt brachial Position Sitting Respiration 12 Pulse 66 Pulse Source Pulse Oximeter Temp 97.2 F Temp Source Oral Pulse Oximetry (%) 99 Oxygen Delivery Method Room Air Intake Visit Reasons: 1 year CPE Intake Note: CPE Manager Game Required: No Allergies No Known Allergies (No Known Allergies*) Allergy (Verified 06/09/25 08:13) Medication List - Last Reconciled 06/09/25 by SHIRA TelloP- azelaic acid 15% (Finacea) 1 appl topical BID 30 days betamethasone dipropionate 0.05% appl topical valacyclovir 500 mg PO BID 14 days Tobacco use date assessed: 06/09/25 Dental Screening Dental Screen Date: 06/09/25 Did you have a dental visit in the last 12 months?: Yes Did you have a dental problem in the last 6 months where you did not have access to dental care?: No Was dental information given to patient?: Patient has dentist HPI HPI Comments History of Present Illness Details 59 y/o F with Rosacea, Psoriasis, Cold sores, anxiety, former smoke, obesity, menopause, varicose veins, osteopenia, family hx colon ca and skin ca, SurgHx: Tonsils/Adenoids, Bladder sling., right great saphenous vein Cyanoacralate ablation. FHx: Dad: Melanoma, HTN, Prostate CA. Mom: HLD, Thyroid. daughter: ADHD. GF: Colon CA SocHx: Quit cigs 22 yrs ago. EtOH: 1-2 dr 1x a week. No drugs Specialists: Derm - [facility] - wears glasses/contacts, UTD on eye exam Health Maintenance: Colon 06/2024 Mammo 03/2025 Pap reports UTD on screening DEXA 11/2024 osteopenia History of Present Illness - The patient is a 59 year old female pr esenting for a complete physical exam and anxiety management. - Reports increased anxiety over the pas t year with family stressors. - Denies maladaptive coping behaviors; i ndicates occasional alcohol use. - Current medications: Finacea, Betameth asone, Valacyclovir. - Cholesterol previously noted with elev ated LDL at 101. - Diagnosed with osteopenia. - Lifestyle impacts: Weight concerns, sl eep disruptions. - Interested in exploring pharmacotherap y for anxiety. Past Surgical History - Right lower extremity varicose vein pimentel rgery. Family History - Positive history for colon cancer. - Positive history for skin cancer. - Mxveop-dg-msd had a stroke. Social History - Former smoker. - Discussed familial responsibilities in volving two daughters. - Reports alcohol consumption but not in excess. 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 - Describes some difficulty in managing weight post-menopause, with efforts to increase physical activity such as walking. Health Maintenance - Previous mammogram in March: normal. - Previous colonoscopy in June: normal . - Previous bone density test showed oste openia. - Discussed starting calcium and vitamin D supplementation with recommendations for Viactiv chews. - Discussed engagement in weight-bearing exercises such as jump roping. - Encouraged medication for anxiety pote ntially starting after returning from vacation. - Mention of prior cholesterol elevation ; considered therapeutic options but concluded lifestyle modifications appear managed. Review of Systems - Psychiatric: Reports increased anxiety in the past year. - Cardiovascular: Denies chest pain or p alpitations. - Gastrointestinal: Denies significant g astrointestinal symptoms, but consti pated, attributed to menopause. - Dermatological: Reports personal histo ry of rosacea and psoriasis; family history of melanoma. - Musculoskeletal: Reports concerns and management of osteopenia. - History of prior varicose vein surgica l intervention. Physical Exam General: Well developed, well nourished, in no acute distress. Appears stated age. Head: Normocephalic, atraumatic. Eyes: Pupils are equal, round and reactive to light and accommodation. Conjunctivae are clear. Vision grossly normal. Ears: TMs clear AU, EACS WNL Nose: Patent, without discharge. Neck: Supple, no adenopathy or thyromegaly. Breast: Edu on SBE Lungs: Clear to auscultation bilaterally. No rales, rhonchi or wheeze noted. Good air flow in all rosas. Heart: Regular rate and rhythm. No murmurs, click, rubs or gallops are noted. Abdomen: Bowel sounds present in all quadrants. The abdomen is soft, nontender, with no masses or organomegaly noted. No hernias are noted. : Deferred. 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 Extremities: No clubbing, cyanosis nor edema is noted. Neurologic: Gait and station normal. Cranial Nerves 2-12 intact. Motor strength grossly symmetrical and intact. No sensory loss. Balance normal. Skin: No rashes, ulcers, or lesions noted. Turgor is good. Skin color is good. Hair and nails are without abnormalities. Psych: Normal eye contact, affect and mood appropriate, and normal interactions. Patient is alert and appropriate to context. Results - Labs: Previous LDL cholesterol at 101, normal bone density indicating osteopenia. - Tests & Diagnostics: Normal mammogram, normal colonoscopy, bone density showing osteopenia. Discussion Notes I discussed the patient's increased anxiety levels in the context of family- related stressors over the past year, considering pharmacotherapy as an option with recommendations to initiate Paxil at a low dose. We discussed the impact of menopause on weight management and osteopenia, advising calcium and vitamin D supplementation with Viactiv chews, and engaging in weight-bearing exercises. Discussed anxiety medication initiation possibly post-vacation due to side effects concerns. Reviewed the recent diagnostic tests and labs, noting prior elevated LDL levels and the plan for monitoring. I emphasized maintaining and optimizing health through regular check-ups, medication adherence, and the importance of addressing lifestyle factors like diet and exercise. Assessment and Plan 1. Generalized Anxiety Disorder - Start Paxil 5mg x 2 weeks then increas e to 10mg QD, titrate PRN . 2. Osteopenia - Calcium and vitamin D supplementation advised, use OTC viactive 3. Menopause Management - Review diet and exercise plan. - Discussed referral to specialist; decl ined @ this time. Labs today. Patient Instructions - Start Paxil - Take Viactiv chews for calcium and vit aiken D daily. - Engage in weight-bearing exercises reg ularly. - Monitor diet and maintain physical act ivity to support weight management. RTO 1 YEAR FOR CPE 6-8 WEEKS TO FU ON MED START SOONER PRN Consent Patient was informed and verbally consented to the use of an ambient scribe for clinic note documentation during this visit. An additional 15 minutes was spent addressing the problem(s) noted at todays visit. This includes time spent before the visit reviewing the chart, time spent during the visit, and time spent after the visit on documentation reviewing laboratory results, diagnostic imaging, medications, performing a medically necessary evaluation, counseling on diagnoses, care coordination, ordering appropriate tests, ordering appropriate medications, review of tests performed by other providers, reporting test results with the patient, communication with other healthcare providers. [facility] Medical History (Updated 06/09/25 @ 09:27 by Elizabeth Ibarra, [facility]) Anxiety Psoriasis Rosacea Tubular adenoma of colon Varicose vein of leg Surgical History (Updated 06/09/25 @ 08:05 by Elizabeth Ibarra, 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 1. Little interest or pleasure in doing things: not at all 2. Feeling down, depressed, or hopeless: not at all 3. Trouble falling or staying asleep, or sleeping too much: not at all 4. Feeling tired or having little energy: not at all 5. Poor appetite or overeating: not at all 6. Feeling bad about yourself - or that you are a failure or have let yourself or your family down: not at all 7. Trouble concentrating on things, such as reading the newspaper or watching television: not at all 8. Moving or speaking so slowly that other people could have noticed. Or the opp osite - being so fidgety or restless that you have been moving around a lot more than usual: not at all 9. Thoughts that you would be better off or of hurting yourself in some way: not at all Total score: 0 Depression Screening Interpretation: Negative Depression Screening Done: Yes 31695 - PHQ-9 Billing: Yes Source: Developed by Drs. Zion Elizondo, Iqra Rene, Jason Nava and colleagues, with an educational zahraa from [employer]. Thrive Questionnaire Date Thrive assessed: 06/09/25 I am a: Patient What is your living situation today?: I have a steady place to live Within the past 12 months, did the food you bought not last and you didn't have the money to get more?: Never true Within the past 12 months, did you worry whether your food would run out before you got money to buy more?: Never true Do you have trouble paying for medicines?: No Do you have trouble getting transportation to medical appointments?: No Do you have trouble paying your heating and electricity bill?: No Do you have trouble taking care of your child, family member or friend?: No Do you have trouble with day-to-day activities such as bathing, preparing meals, shopping, managing finances, etc.?: No Are you currently unemployed and looking for a job?: No Are you interested in more education?: No Please select the resources that you would like help with: None Currently or been in a relationship where the following occur: No concerns reported THRIVE Score: 0 AUDIT C Alcohol Use Questionnaire (AUDIT-C) 1. How often do you have a drink containing alcohol?: 2-3 times a week 2. How many drinks containing alcohol do you have on a typical day when you are drinking?: 1 or 2 3. How often do you have six or more drinks on one occasion?: Never Total Score: 3 Score Reviewed/Action Taken: Yes EDD-7 AMB Questionnaire EDD-7 Date EDD - 7 assessed: 06/09/25 Feeling nervous, anxious, or on edge: 0 = Not at all Not being able to stop or control worryin = Not at all Worrying too much about different things: 0 = Not at all Trouble relaxin = Not at all Being so restless that it is hard to sit still: 0 = Not at all Becoming easily annoyed or irritable: 0 = Not at all Feeling afraid as if something awful might happen: 0 = Not at all Total EDD-7 score (0-4 normal; 5-9 mild; 10-14 moderate; 15-21 severe): 0 Source: Developed by Drs. Zion Elizondo, Iqra Rene, Jason Nava and colleagues, with an educational zahraa from [employer]. EDD-7 Assessment Billing EDD-7 Assessment Tool: EDD-7 Assessment 62721 Physical exam (Primary Care) Vital Signs: Last Vital Signs Temp 97.2 F 06/09/25 08:08 Pulse 66 06/09/25 08:08 Resp 12 06/09/25 08:08 BP 102/67 06/09/25 08:08 Pulse Ox 99 06/09/25 08:08 Oxygen Delivery Method Room Air 06/09/25 08:08 BMI result Body Mass Index 28.7 Tobacco/Smoking Status: Tobacco use Status Tobacco use date assessed 06/09/25 06/09/25 08:05 Patient Tobacco Use Status Former Tobacco user 06/09/25 08:05 Tobacco use type Cigarette 06/09/25 08:05 e-Cigarette/Vaping Use Never Used 06/09/25 08:05 PHQ-9: PHQ-9 Score PHQ-9: Total score 0 06/09/25 08:05 Depression Screening Interpretation: Negative Thrive Assessment: Date of Thrive Assessment Date Thrive assessed 06/09/25 06/09/25 08:05 Currently or been in a relationship where the following occur: No concerns reported Coding Level of Care Code Est Pt Level 2 (03078) Est Pt Prev Care 40-64y(93202) Diagnoses Encounter for general adult medical examination without abnormal findings Z00.00 Anxiety F41.9 Varicose veins of right lower extremity with inflammation I83.11 Psoriasis L40.9 Rosacea L71.9 Laboratory exam ordered as part of routine general medical examination Z00.00 Menopause Z78.0 Family history of colon cancer Z80.0 Family history of melanoma Z80.8 Osteopenia of multiple sites M85.89 Osteopenia location: multiple sites Additional Codes EDD-7 Assessment Billing - EDD-7 Assessment Tool: EDD-7 Assessment 81275 ([id number]) PHQ-9 - 03602 - PHQ-9 Billing: Yes ([id number]) Assessment & Plan Assessment & Plan (1) Encounter for general adult medical examination without abnormal findings: Onset Date: ~06/09/25 Code(s): Z00.00 - Encounter for general adult medical examination without abnormal findings Category: Medical (2) Anxiety: Code(s): F41.9 - Anxiety disorder, unspecified Category: Medical (3) Varicose veins of right lower extremity with inflammation: Comment: 04/01/2025 - right great saphenous vein Cyanoacralate ablation Code(s): I83.11 - Varicose veins of right lower extremity with inflammation Category: Medical (4) Psoriasis: Code(s): L40.9 - Psoriasis, unspecified Category: Medical (5) Rosacea: Code(s): L71.9 - Rosacea, unspecified Category: Medical (6) Laboratory exam ordered as part of routine general medical examination: Code(s): Z00.00 - Encounter for general adult medical examination without abnormal findings Category: Medical (7) Menopause: Code(s): Z78.0 - Asymptomatic menopausal state Category: Medical (8) Family history of colon cancer: Code(s): Z80.0 - Family history of malignant neoplasm of digestive organs Category: Medical (9) Family history of melanoma: Code(s): Z80.8 - Family history of malignant neoplasm of other organs or systems Category: Medical (10) Osteopenia: Onset Date: ~11/2024 Code(s): M85.80 - Other specified disorders of bone density and structure, unspecified site Category: Medical Qualifiers: Osteopenia location: multiple sites Qualified Code(s): M85.89 - Other specified disorders of bone density and structure, multiple sites Plan . Orders: Orders Comprehensive Met. Panel Today Z00.00 - Encounter for general adult medical exa mination without abnormal findings Complete Blood Count no Diff Today Z00.00 - Encounter for general adult medical examination without abnormal findings Lipid Panel Today Z00.00 - Encounter for general adult medical examination without abnormal findings Vitamin B12 and Folate Today Z00.00 - Encounter for general adult medical examination without abnormal findings Vitamin D 25-OH Total Today Z00.00 - Encounter for general adult medical examination without abnormal findings Hemoglobin A1c Today Z00.00 - Encounter for general adult medical examination without abnormal findings Microalbumin, Random (w Creat) Today Z00.00 - Encounter for general adult medical examination without abnormal findings TSH reflex Free T4 Today Z00.00 - Encounter for general adult medical examination without abnormal findings Medications: New paroxetine HCl (Paxil) 1/2 tab daily x 2 weeks then increase to 1 tab daily 10 mg PO DAILY 30 tabs 1RF Patient Instructions: Health screenings for women You should visit your health care provider from time to time, even if you are healthy. The purpose of these visits is to: Screen for medical issues Assess your risk for future medical problems Encourage a healthy lifestyle Update vaccinations and other preventive care services Help you get to know your provider in case of an illness Information Even if you feel fine, you should still see your provider for regular checkups. These visits can help you avoid problems in the future. For example, the only way to find out if you have high blood pressure is to have it checked regularly. High blood sugar and high cholesterol levels also may not have any symptoms in the early stages. A simple blood test can check for these conditions. There are specific times when you should see your provider or receive specific health screenings. The [place] Preventive Services Task Force publishes a list of recommended screenings. Below are screening guidelines for women ages 18 to 39. BLOOD PRESSURE SCREENING Your blood pressure should be checked at least once every 3 to 5 years if: Your blood pressure is in the normal range (top number less than 120 mm Hg and bottom number less than 80 mm Hg) You don't have risk factors for high blood pressure Ask your provider if you need your blood pressure checked more often if: The top number is 120 to 129 mm Hg or the bottom number is 70 to 79 mm Hg You have diabetes, heart disease, kidney problems, are overweight, or have certa in other health conditions You have a first-degree relative with high blood pressure You are Black You had high blood pressure during a If the top number is 130 mm Hg or greater or the bottom number is 80 mm Hg or greater, this is considered stage 1 hypertension. Schedule an appointment with your provider to learn how you can reduce your blood pressure. Watch for blood pressure screenings in your area. Ask your provider if you can stop in to have your blood pressure checked. BREAST CANCER SCREENING Experts do not agree about the benefits of breast self-exams in finding breast cancer or saving lives. Talk to your provider about what is best for you. A screening mammogram is not recommended for most women under age 40. Your provider may discuss and recommend mammograms, MRI scans, or ultrasounds if you have an increased risk for breast cancer, such as: A mother or sister who had breast cancer at a young age (most often starting screening earlier than the age the close relative was diagnosed) You carry a high-risk genetic marker CERVICAL CANCER SCREENING Cervical cancer screening should start at age 21 years unless your provider advises otherwise. After the first test: Women ages 21 through 29 should have a Pap test every 3 years. Exoprts do not agree on whether HPV testing is recommended for this age group. Women ages 30 through 65 should be screened with either a Pap test every 3 years or the HPV test every 5 years or both tests every 5 years (called cotesting ). Women who have been treated for precancer (cervical dysplasia) should continue to have Pap tests for 20 years after treatment or until age 65, whichever is longer. If you have had your uterus and cervix removed (total hysterectomy), and you have not been diagnosed with cervical cancer or precancer (high grade cervical neoplasia), you do not need cervical cancer screening. CHOLESTEROL SCREENING Cholesterol screening should begin at: Age 45 for women with no known risk factors for coronary heart disease Age 20 for women with known risk factors for coronary heart disease Repeat cholesterol screening should take place: Every 5 years for women with normal cholesterol levels More often if changes occur in lifestyle (including weight gain and diet) More often if you have diabetes, heart disease, kidney problems, or certain other conditions DIABETES SCREENING You should be screened for diabetes starting at age 35 and then repeated every 3 years if you have no risk factors for diabetes. Screening may need to start earlier and be repeated more often if you have other risk factors for diabetes, such as: You have a first degree relative with diabetes. You are overweight or have obesity. You have high blood pressure, prediabetes, or a history of heart disease. Screening for diabetes should be done if you are planning to become and you are overweight and have other risk factors such as high blood pressure. DENTAL EXAM Go to the dentist once or twice every year for an exam and cleaning. Your dentist will evaluate if you need more frequent visits. EYE EXAM Have an eye exam every 5 to 10 years before age 40. If you have vision problems, have an eye exam every 2 years or more often if recommended by your provider. You should have an eye exam that includes an examination of your retina (back of your eye) at least every year if you have diabetes. IMMUNIZATIONS Commonly needed vaccines include: Flu shot: get one every year. COVID-19 vaccine: ask your provider what is best for you. Tetanus-diphtheria and acellular pertussis (Tdap) vaccine: have one at or after age 19 as one of your tetanus-diphtheria vaccines if you did not receive it as an adolescent. Tetanus-diphtheria: have a booster (or Tdap) every 10 years. Varicella vaccine: receive 2 doses if you never had chickenpox or the varicella vaccine. Hepatitis B vaccine: receive 2, 3, or 4 doses, depending on your exact circumstances. Measles, mumps, and rubella (MMR) vaccine: receive 1 to 2 doses if you are not already immune to MMR. Your provider can tell you if you are immune. Ask your provider about the human papillomavirus (HPV) vaccine if: You have not received the HPV vaccine in the past You have not completed the full vaccine series (you should catch up on this shot) Ask your provider if you should receive other immunizations if you have certain health problems that increase your risk for some diseases such as pneumonia. INFECTIOUS DISEASE SCREENING Women who are sexually active should be screened for chlamydia and gonorrhea up until age 25. Women 25 years and older should be screened for chlamydia and gonorrhea if at high risk. Screening for hepatitis C: All adults ages 18 to 79 should get a one-time test for hepatitis C. people should be screened at every . Screening for human immunodeficiency virus (HIV): All people ages 15 to 65 should get a one-time test for HIV. Depending on your lifestyle and medical history, you may also need to be screened for infections such as syphilis and HIV, as well as other infections. PHYSICAL EXAM All adults should visit their provider from time to time, even if they are healthy. The purpose of these visits is to: Screen for disease Assess your risk of future medical problems Encourage a healthy lifestyle Update your vaccinations and other preventive care services Maintain a relationship with a provider in case of an illness Your height, weight, and BMI should be checked at every exam. During your exam, your provider may ask you about: Depression and anxiety Diet and exercise Alcohol and tobacco use Safety issues, such as using seat belts, smoke detectors, and intimate partner violence Your medicines and risk for interactions SKIN SELF-EXAM Your provider may check your skin for signs of skin cancer, especially if you're at high risk, such as if you: Have had skin cancer before Have close relatives with skin cancer Have a weakened immune system OTHER SCREENING Talk with your provider about colon cancer screening if you have a strong family history of colon cancer or polyps, or if you have had inflammatory bowel disease or polyps yourself. Routine bone density screening of women under 40 is not recommended.
--- OUTSIDE RECORDS SUMMARY | 2025-06-09 08:04 | XMS_ITS | Patient Health Record ---
Author Organization [facility] Address [address] [place] [address] Care Team Providers Care Physical Education Professor Name Role Phone Jose Velasco Primary Care Provider UnavailZion Crooks Unavailable [phone] Allergies No Known Allergies Reason For Referral [...] Status Risk Notes Problem Colon cancer screening (884963355) Colon cancer screening (Z12.11) Active confirmed Problem 671648281 Encounter for screening for malignant neoplasm of colon (Z12.11) Active confirmed Problem History of adenomatous polyp of colon (765746155) History of adenomatous polyp of colon (Z86.010) Active confirmed Problem Diverticular disease of colon (385892800) Diverticulosis of large intestine without perforation or abscess without bleeding (K57.30) Active confirmed Problem Preprocedural examination (210163243761022) Preprocedural examination (Z01.818) Active confirmed Problem [id number] Pre-procedural examination (Z01.818) Active confirmed Vital Signs Temperature 97.5 degrees Fahrenheit 07/14/2024 Blood pressure diastolic 00 mm Hg 07/14/2024 Height 65 in 07/14/2024 Blood pressure systolic 000 mm Hg 07/14/2024 Weight 179 lb 8 oz lbs 07/14/2024 BMI 29.87 kg/m2 07/14/2024 Encounters Encounter Location Date Provider Diagnosis [facility] [address] [place], [place] [phone] 11/22/2024 Zion Yi Colon cancer screeni ng Z12.11 ; Personal history of colonic polyps Z86.0100 ; Diverticulosis of large intestine without perforation or abscess without bleeding K57.30 and Other hemorrhoids K64.8 [facility] [address] [place] [address] 07/14/2024 Zion Yi History of adenomato us [...] Insured Coverage Start Date Coverage End Date [facility] [address] [place] [address] [id number] JIM CORTEZ Self - patient is the insured Medical (General) History Medical History History ICD Code Denies [place],DM,CVA,Lung disease,renal dise ase Colonoscopy in 12/2018 with a small tubul ar adenoma removed Surgical History Surgery Date(Month/Year) Bladder suspension 05/2016 Tonsillectomy
--- OUTSIDE RECORDS SUMMARY | 2025-06-09 08:04 | XMS_ITS | Patient Health Record ---
Author Organization [facility] Tristen Leon Address [address] [facility] [place] [address] Care Team Providers Care Violin Restorer Name Role Phone Chio GIRALDO, [facility] Care Provide r Unavailable Iris Stewart Unavailable [phone] Reason For Referral No Information Medications Medication SIG (Take, Route, Fr equency, Duration) Notes Start Date End Date Status Valtrex 500 MG Orally PRN Acti ve Problems No Known Problems Plan Of Treatment No Information Insurance Providers Payer Name Payer Address Payer Phone Subscriber Number Group Number Insured Name Patient Relationship to Insured Coverage Start Date Coverage End Date [facility] [address] [place] [address] [id number] Doyle Cortez Self - patient is the insured Medical (General) History Medical History History ICD Code Chicken pox Surgical History Surgery Date(Month/Year) sling, at bladder neck 05/16/2016
[2025-06-09 08:08] VITALS: BP 102/67; PULSE 66; RESP 12; TEMP 36.2; O2SAT 99; BMI 28.7
== END 2025-06-09 08:45 | disposition home or self-care (01) ==
LOC: HO.HMCFM 08:01
PROVIDERS: PCP Nurse Practitioner Family; Visit Provider Nurse Practitioner Family
DX: Z00.00 Encounter for general adult medical examination without abnormal findings (principal); F41.9 Anxiety disorder, unspecified; I83.11 Varicose veins of right lower extremity with inflammation; L40.9 Psoriasis, unspecified; L71.9 Rosacea, unspecified; Z78.0 Asymptomatic menopausal state; Z80.0 Family history of malignant neoplasm of digestive organs; Z80.8 Family history of malignant neoplasm of other organs or systems; M85.89 Other specified disorders of bone density and structure, multiple sites

== ENCOUNTER → 2025-06-09 08:00 | Outpatient (BNVA) | payer OTHER, SELFPAY | PROVIDERS: PCP Nurse Practitioner Family; Visit Provider Nurse Practitioner Family | DX: Z00.00 Encounter for general adult medical examination without abnormal findings (principal); F41.9 Anxiety disorder, unspecified; I83.11 Varicose veins of right lower extremity with inflammation; L40.9 Psoriasis, unspecified; L71.9 Rosacea, unspecified; M85.89 Other specified disorders of bone density and structure, multiple sites; Z78.0 Asymptomatic menopausal state; Z80.0 Family history of malignant neoplasm of digestive organs; Z80.8 Family history of malignant neoplasm of other organs or systems; Z13.31 Encounter for screening for depression; Z13.39 Encounter for screening examination for other mental health and behavioral disorders | CPT/HCPCS: 96127 ==

== ENCOUNTER 2025-06-09 08:53 | Outpatient (REF) | payer OTHER, SELFPAY ==
[2025-06-09 11:27] LABS: Hematocrit 42.6 % (37.0-47.0); Hemoglobin 14.5 g/dl (12.0-16.0); Mean Corpuscular HGB Conc 34.0 g/dl (31.0-35.0); Mean Corpuscular Hemoglobin 29.7 pg (27.0-33.0); Mean Corpuscular Volume 87.3 fL (80.0-98.0); NRBC Abs Auto 0.000 X10*3/uL (0.0-0.012); NRBC Pct Auto 0.0 /100WBC (0.0-0.2); Platelet Count 244 X10*3/uL (160-400); Red Blood Count 4.88 X10*6/uL (4.20-5.50); White Blood Count 5.1 X10*3/uL (4.8-10.8)
[2025-06-09 11:45] LABS: Hemoglobin A1C 114.6437 umol/L; Total Hemoglobin (HGBA1C) 3759.1250 umol/L
[2025-06-09 11:59] LABS: Alanine Aminotransferase 29 U/L (0-31); Albumin Level 4.8 g/dL (3.5-5.0); Alkaline Phosphatase 69 U/L (39-117); Anion Gap 12 (12-20); Aspartate Amino Transferase 27 U/L (5-31); Blood Urea Nitrogen 18 mg/dL (9-16); Calcium 9.3 mg/dL (8.4-10.2); Carbon Dioxide 25 mmol/L (22-29); Chloride 108 mmol/L (96-108); Cholesterol 186 mg/dL (<200); Estimated Glomerular Filt Rate > 60; HDL Cholesterol 67 mg/dL (>40); Potassium 4.2 mmol/L (3.3-5.1); Sodium 141 mmol/L (135-145); Total Protein 7.4 g/dL (6.5-8.0); Triglycerides 73 mg/dL (<150)
[2025-06-09 12:03] LABS: Microalbum/Creatinine Ratio Ur 4.4 ug/mg cr (<30)
[2025-06-09 12:21] LABS: Folate 8.4 ng/mL (> or = 4.0); Vitamin B12 463 pg/mL (200-900)
== END 2025-06-09 08:54 | disposition home or self-care (01) ==
LOC: HO.WFDLDS 08:53
PROVIDERS: Visit Provider Nurse Practitioner Family
DX: Z00.00 Encounter for general adult medical examination without abnormal findings (principal)
CPT/HCPCS: 36415; 80053; 80061; 82043; 82306; 82570; 82607; 82746; 83036; 84443; 85027

== ENCOUNTER 2025-07-26 08:59 | Outpatient (AMB) | payer OTHER, SELFPAY ==
--- OUTSIDE RECORDS SUMMARY | 2024-03-17 12:00 | XMS_ITS ---
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 Name Role Phone Jose Velasco Primary Care Provider Unavailab Zion Calloway [phone] REASON FOR VISIT Patient presents today for a SCREENING COLON Encounters Encounter Location Date Provider Diagnosis [facility] [address] [place] [address] 03/17/2024 Zion Yi Plan Of Treatment No Information Progress Notes * JIM CORTEZ GERAEDOB:[birth year] (59 yo F)Acc No.[id number]:03/17/2024 Progress Notes Patient: JIM MACIAS Provider: Ramesh Yi MD :[id number] A ge:58 Y S ex:Female Date:03/17/2024 Address[address] [id number] Pcp:Jose Velasco Subjective: * Chief Complaints: * 1 . Patient presents today for a SCREENING COLON. * Medical History: Objective: * Vitals: Assessment: Plan: * Treatment: * * The named appointment provid er may or may not be the originator of this progress note, and it is not deemed complete until electronically signed by the appointment provider. Sign off status: Pending * Provider: Ramesh Yi MD Date: 0 03/17/2024 Generated for Printi ng/Faxing/eTransmitting on: 0 07/26/2025 10:18 AM EDT
--- OUTSIDE RECORDS SUMMARY | 2024-11-22 03:30 | XMS_ITS ---
Author Organization [facility] Address [address] [place] [address] Care Team Providers Care Clinical Pathologist Name Role Phone Jose Velasco Primary Care Provider Unavailab Zion Calloway Unavailable [phone] REASON FOR VISIT colon screening Problems Problem Type SNOMED Code ICD Code Onset Dates Problem Status W/U Status Risk Notes Problem Diverticular disease of colon (278035898) Diverticulosis of large intestine without perforation or abscess without bleeding (K57.30) Active confirmed Encounters Encounter Location Date Provider Diagnosis [facility] [place] [address] [place] [phone] 11/22/2024 Zion Yi Colon cancer scree ely Z12.11 ; Personal history of colonic polyps Z86.0100 ; Diverticulosis of large intestine without perforation or abscess without bleeding K57.30 and Other hemorrhoids K64.8 Assessments Encounter Date Diagnosis (ICD Code) Assessment Notes Treatment Notes Treatment Clinical Notes Section Notes 11/22/2024 Colon cancer screening (ICD-10 - Z12.11) 11/22/2024 Personal history of colonic polyps (ICD-10 - Z86.0100) 11/22/2024 Diverticulosis of large intestine without perforation or abscess without bleeding (ICD-10 - K57.30) 11/22/2024 Other hemorrhoids (ICD-10 - K64.8) Plan Of Treatment No Information Progress Notes * JIM CORTEZOB:[birth year] (59 yo F)Acc No.[id number]:11/22/2024 COLON WITH MAC Patient: JIM MACIAS Provider: Ramesh Yi MD :1965 A ge:59 Y S ex:Female Date:11/22/2024 Address:[facility] [place], [place] Pcp:Jose Velasco Subjective: * Chief Complaints: * 1 . Colon screening. * Medical History: Objective: * Vitals: Assessment: * Assessment: 1. C olon cancer screening - Z12.11 (Primary) 2 . P ersonal history of colonic polyps - Z86.0100 3 . D iverticulosis of large intestine without perforation or abscess without bleeding - K57.30 4 . O ther hemorrhoids - K64.8 ? Plan: * Treatment: * Procedure Codes: 4 5378 DIAGNOSTIC COLONOSCOPY * * The named appointment provid er may or may not be the originator of this progress note, and it is not deemed complete until electronically signed by the appointment provider. Sign off status: Pending * Provider: Ramesh Yi MD Date: 0 11/22/2024 Generated for Marquis nichols/Subhash/Taneshaitting on: 0 07/26/2025 10:18 AM EDT
--- NOTE | 2025-07-26 09:01 | A.OFFPC_ITS ---
Vital Signs 07/26/25 09:04 Height 5 ft 5 in Weight 170 lb 4 oz BMI 28.3 BP 124/70 Blood Pressure Location Rt brachial Position Sitting Respiration 12 Pulse 71 Pulse Source Pulse Oximeter Temp 96.9 F Temp Source Oral Pulse Oximetry (%) 98 Oxygen Delivery Method Room Air Intake Visit Reasons: 6-8 weeks fu med start Intake Note: Follow up med start. Patient has not been taking meds. Flavor Tank Tender Required: No Allergies No Known Allergies (No Known Allergies*) Allergy (Verified 07/26/25 09:20) Medication List - Last Reconciled 07/26/25 by Elizabeth Ibarra, PREVENTIVE MEDICINE OFFICER- azelaic acid 15% (Finacea) 1 appl topical BID 30 days betamethasone dipropionate 0.05% appl topical valacyclovir 500 mg PO BID 14 days Tobacco use date assessed: 07/26/25 Dental Screening Dental Screen Date: 07/26/25 Did you have a dental visit in the last 12 months?: Yes Did you have a dental problem in the last 6 months where you did not have access to dental care?: No Was dental information given to patient?: Patient has dentist HPI HPI Comments History of Present Illness Details 59 y/o F with Rosacea, Psoriasis, Cold sores, anxiety, former smoke, obesity, menopause, varicose veins, osteopenia, family hx colon ca and skin ca, SurgHx: Tonsils/Adenoids, Bladder sling., right great saphenous vein Cyanoacralate ablation. FHx: Dad: Melanoma, HTN, Prostate CA. Mom: HLD, Thyroid. daughter: ADHD. GF: Colon CA SocHx: Quit cigs 22 yrs ago. EtOH: 1-2 dr 1x a week. No drugs Specialists: Derm - [facility] - wears glasses/contacts, UTD on eye exam Health Maintenance: Colon 06/2024 Mammo 03/2025 Pap reports UTD on screening DEXA 11/2024 osteopenia History of Present Illness - The patient is a 59-year-old female pr esenting for follow-up on anxiety - Did not start; does not think she need s it at this time - Started Viactiv for Osteopenia; exerci sing; intentional wt loss - Denies SI/HI. Physical Exam General: Well developed, well nourished, in no acute distress. Appears stated age. Head: Normocephalic, atraumatic. Eyes: Pupils are equal, round and reactive to light and accommodation. Conjunctivae are clear Lungs: Clear to auscultation bilaterally. No rales, rhonchi or wheeze noted. Good air flow in all rosas. Heart: Regular rate and rhythm. No murmurs, click, rubs or gallops are noted. Extremities: No clubbing, cyanosis nor edema is noted. Psych: Mood and affect appropriate. Discussion Notes I acknowledged her use of breathing techniques for symptom management as suggested by her spouse. I encouraged continued physical activity and supplement use as appropriate. I emphasized her readiness to start Paroxetine (Paxil) if necessary and suggested staying closely monitored for any changes in her condition. No new medications were initiated at this visit, and the patient expressed understanding and agreement with the current plan. Patient was given time to ask questions. All questions were answered to their satisfaction. Assessment and Plan - Monitor symptoms; breathing techniques recommended. - Consider Paxil if needed. - cont viactive, exercise - RTO 06/2026 for CPE sooner as needed . Patient Instructions - Continue breathing techniques and phys ical exercise routines. - Start Paroxetine (Paxil) if symptoms w lubna. - Take calcium supplements as advised fo [employer]. - Contact me for any significant changes or queries. Consent Patient was informed and verbally consented to the use of an ambient scribe for clinic note documentation during this visit. Total time spent caring for the patient today was 30 minutes. This includes time spent before the visit reviewing the chart, time spent during the visit, and time spent after the visit on documentation, reviewing laboratory results, diagnostic imaging, medications, performing a medically necessary evaluation, counseling on diagnoses, care coordination, ordering appropriate tests, ordering appropriate medications, review of tests performed by other providers, reporting test results with the patient, communication with other healthcare providers. [facility] Medical History (Updated 06/09/25 @ 09:27 by TUTU Tello-MONICO) Anxiety Psoriasis Rosacea Tubular adenoma of colon Varicose vein of leg Surgical History (Updated 06/09/25 @ 08:05 by Elizabeth Ibarra, TUTU-MONICO) H/O colonoscopy (~2023) History of bladder suspension procedure Hx of tonsillectomy Social History Household Members: Spouse Housing: House Alcohol intake: current Alcohol intake frequency: a few times a week Alcohol type: wine and hard liquor Patient Tobacco Use Status: Former Tobacco user Tobacco use type: Cigarette e-Cigarette/Vaping Use: Never Used Second Hand Smoke Exposure: No service: No Current occupational status: employed 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 Cognitive needs: No Hearing needs: No Vision needs: Yes Questionnaire Thrive Questionnaire Date Thrive assessed: 06/09/25 I am a: Patient What is your living situation today?: I have a steady place to live Within the past 12 months, did the food you bought not last and you didn't have the money to get more?: Never true Within the past 12 months, did you worry whether your food would run out before you got money to buy more?: Never true Do you have trouble paying for medicines?: No Do you have trouble getting transportation to medical appointments?: No Do you have trouble paying your heating and electricity bill?: No Do you have trouble taking care of your child, family member or friend?: No Do you have trouble with day-to-day activities such as bathing, preparing meals, shopping, managing finances, etc.?: No Are you currently unemployed and looking for a job?: No Are you interested in more education?: No Please select the resources that you would like help with: None Currently or been in a relationship where the following occur: No concerns reported THRIVE Score: 0 EDD-7 AMB Questionnaire EDD-7 Date EDD - 7 assessed: 06/09/25 Source: Developed by Drs. Zion Elizondo, Iqra Rene, Jason Nava and colleagues, with an educational zahraa from [employer]. Physical exam (Primary Care) Vital Signs: Last Vital Signs Temp 96.9 F 07/26/25 09:04 Pulse 71 07/26/25 09:04 Resp 12 07/26/25 09:04 BP 124/70 07/26/25 09:04 Pulse Ox 98 07/26/25 09:04 Oxygen Delivery Method Room Air 07/26/25 09:04 BMI result Body Mass Index 28.3 Tobacco/Smoking Status: Tobacco use Status Tobacco use date assessed 07/26/25 07/26/25 09:06 Patient Tobacco Use Status Former Tobacco user 07/26/25 09:06 Tobacco use type Cigarette 07/26/25 09:06 e-Cigarette/Vaping Use Never Used 07/26/25 09:06 Thrive Assessment: Date of Thrive Assessment Date Thrive assessed 06/09/25 07/26/25 09:06 Currently or been in a relationship where the following occur: No concerns reported Coding Level of Care Code Est Pt Level 4 (18161) Complex EM visit Add On G2211 Diagnoses Anxiety F41.9 Osteopenia of multiple sites M85.89 Osteopenia location: multiple sites Assessment & Plan Assessment & Plan (1) Anxiety: Code(s): F41.9 - Anxiety disorder, unspecified Category: Medical (2) Osteopenia: Onset Date: ~11/2024 Code(s): M85.80 - Other specified disorders of bone density and structure, unspecified site Category: Medical Qualifiers: Osteopenia location: multiple sites Qualified Code(s): M85.89 - Other specified disorders of bone density and structure, multiple sites Plan .
[2025-07-26 09:04] VITALS: BP 124/70; PULSE 71; RESP 12; TEMP 36.1; O2SAT 98; BMI 28.3
--- OUTSIDE RECORDS SUMMARY | 2025-07-26 10:18 | XMS_ITS | Patient Health Record ---
Author Organization [facility] Tristen Leon Address [address] [facility] [place] [address] Care Team Providers Care Systems Operator Name Role Phone Chio GIRALDO, [facility] Care Provide r Unavailable Iris Stewart Unavailable [phone] Reason For Referral No Information Medications Medication SIG (Take, Route, Fr equency, Duration) Notes Start Date End Date Status Valtrex 500 MG Orally PRN Acti ve Problems No Known Problems Plan Of Treatment No Information Insurance Providers Payer Name Payer Address Payer Phone Subscriber Number Group Number Insured Name Patient Relationship to Insured Coverage Start Date Coverage End Date [facility] Navigator [address] [place] [phone] [id number] Doyle Cortez Self - patient is the insured Medical (General) History Medical History History ICD Code Chicken pox Surgical History Surgery Date(Month/Year) sling, at bladder neck 05/16/2016
--- OUTSIDE RECORDS SUMMARY | 2025-07-26 10:18 | XMS_ITS | Patient Health Record ---
Author Organization [facility] Address [address] [place] [address] Care Team Providers Care Montessori Teacher Name Role Phone Jose Velasco Primary Care Provider UnavailZion Crooks Unavailable [phone] Allergies No Known Allergies Reason For Referral [...] Status Risk Notes Problem Colon cancer screening (212985543) Colon cancer screening (Z12.11) Active confirmed Problem 860523346 Encounter for screening for malignant neoplasm of colon (Z12.11) Active confirmed Problem History of adenomatous polyp of colon (742837976) History of adenomatous polyp of colon (Z86.010) Active confirmed Problem Diverticular disease of colon (585069600) Diverticulosis of large intestine without perforation or abscess without bleeding (K57.30) Active confirmed Problem Preprocedural examination (938629261921254) Preprocedural examination (Z01.818) Active confirmed Problem [id number] Pre-procedural examination (Z01.818) Active confirmed Encounters Encounter Location Date Provider Diagnosis [facility] [place] [address] [place] [phone] 11/22/2024 Zion Yi Colon cancer scree ely [...] Insured Coverage Start Date Coverage End Date [email or web address] [address] [place] [address] [id number] JIM CORTEZ Self - patient is the insured Medical (General) History Medical History History ICD Code Denies [place],DM,CVA,Lung disease,renal dise ase Colonoscopy in 12/2018 with a small tubul ar adenoma removed Surgical History Surgery Date(Month/Year) Bladder suspension 05/2016 Tonsillectomy
== END 2025-07-26 09:25 | disposition home or self-care (01) ==
LOC: HO.HMCFM 09:00
PROVIDERS: PCP Nurse Practitioner Family; Visit Provider Nurse Practitioner Family
DX: F41.9 Anxiety disorder, unspecified (principal); M85.89 Other specified disorders of bone density and structure, multiple sites